=== PATIENT | female | born 1950 | race Asian ===

== ENCOUNTER → 2016-11-08 | Outpatient (CLI) | payer OTHER ==
[~2016-11-08] MED LIST: METO50 PO
== END | disposition home or self-care (01) ==
LOC: RADPV 09:28
PROVIDERS: ATTEND Legal Medicine
DX: M25.821 Other specified joint disorders, right elbow (principal); M25.562 Pain in left knee; M17.0 Bilateral primary osteoarthritis of knee

== ENCOUNTER → 2016-11-16 | Outpatient (CLI) | payer OTHER ==
[2016-11-16 10:32] LABS: BASOPHILS # (AUTO) 0.05 K/uL (0.00-0.20); BASOPHILS % (AUTO) 0.6 % (0.0-2.0); EOSINOPHILS # (AUTO) 0.73 K/uL (0.00-0.70); EOSINOPHILS % (AUTO) 7.45 % (1.0-6.0); HEMATOCRIT 32.7 % (36-46); HEMOGLOBIN 10.7 g/dL (12.0-16.0); LYMPHOCYTES # (AUTO) 2.3 K/uL (1.0-4.8); LYMPHOCYTES % (AUTO) 23.4 % (22.0-44.0); MEAN CORPUSCULAR HGB CONC 32.6 G/dL (31.0-37.0); MEAN CORPUSCULAR VOLUME 92 fL (80-100); MONOCYTES # (AUTO) 0.6 K/uL (0.1-1.0); MONOCYTES % (AUTO) 6.3 % (2.0-9.0); NEUTROPHILS # (AUTO) 6.1 K/uL (1.8-7.7); NEUTROPHILS % (AUTO) 62.3 % (40.0-70.0); PLATELET COUNT (AUTO) 310 K/uL (150-450); RED BLOOD CELL COUNT(AUTO) 3.55 MIL/uL (4.00-5.20); RED CELL DISTRIBUTION WIDTH 14.3 % (11.5-14.5); WHITE BLOOD COUNT (AUTO) 9.7 K/uL (4.5-11.0)
[2016-11-16 10:53] LABS: CHOL/HDL RATIO 2.9 (3.9-5.7)
[2016-11-20 06:23] LABS: ALBUMIN (IFE & ELECTROPHOR) 3.5 g/dL (2.9-4.4); ALBUMIN/GLOBULIN RATIO (IFE) 1.1 (0.7-1.7); ALPHA-2 (IFE & PEP) 0.8 g/dL (0.4-1.0); IGG (IMMUNOFIXATION) 1195 mg/dL (700-1600); M-SPIKE (IEP) Not Observed g/dL (Not Observed); TOTAL PROTEIN 6.7 g/dL (6.0-8.5)
[2016-11-20 11:37] LABS: ALPHA-1 URINE (ELP) 3.8 %; ALPHA-2 URINE(ELP) 17.8 %; BETA URINE(ELP) 30.5 %; GAMMA URINE(ELP) 12.9 %; TOTAL PROTEIN URINE 26.5 mg/dL (Not Estab.)
== END | disposition home or self-care (01) ==
LOC: LABPV 07:57
PROVIDERS: ATTEND Internal Medicine Rheumatology
DX: C90.00 Multiple myeloma not having achieved remission (principal); M06.9 Rheumatoid arthritis, unspecified; Z78.0 Asymptomatic menopausal state; M19.012 Primary osteoarthritis, left shoulder; M19.011 Primary osteoarthritis, right shoulder; M47.892 Other spondylosis, cervical region; M50.321 Other cervical disc degeneration at C4-C5 level; M50.322 Other cervical disc degeneration at C5-C6 level; M50.323 Other cervical disc degeneration at C6-C7 level
CPT/HCPCS: 72040; 82784; 84155; 84156; 84165; 84166; 86334

== ENCOUNTER → 2016-12-18 | Outpatient (CLI) | payer OTHER | END | disposition home or self-care (01) | LOC: RADPV 13:09 | PROVIDERS: ATTEND Legal Medicine | DX: S82.61XK Displaced fracture of lateral malleolus of right fibula, subsequent encounter for closed fracture with nonunion (principal); S82.51XK Displaced fracture of medial malleolus of right tibia, subsequent encounter for closed fracture with nonunion; X58.XXXD Exposure to other specified factors, subsequent encounter; M76.61 Achilles tendinitis, right leg; M79.89 Other specified soft tissue disorders ==

== ENCOUNTER → 2017-01-22 | Outpatient (CLI) | payer OTHER ==
[2017-01-22 11:20] LABS: BASOPHILS % (AUTO) 0.4 % (0.0-2.0); EOSINOPHILS % (AUTO) 4.5 % (1.0-6.0); HEMATOCRIT 33.3 % (36-46); HEMOGLOBIN 10.5 g/dL (12.0-16.0); LYMPHOCYTES # (AUTO) 1.3 K/uL (1.0-4.8); MEAN CORPUSCULAR HEMOGLOBIN 29.2 pg (26.0-34.0); MEAN CORPUSCULAR HGB CONC 31.6 G/dL (31.0-37.0); MEAN CORPUSCULAR VOLUME 92 fL (80-100); MONOCYTES # (AUTO) 0.5 K/uL (0.1-1.0); MONOCYTES % (AUTO) 3.6 % (2.0-9.0); NEUTROPHILS # (AUTO) 10.3 K/uL (1.8-7.7); NEUTROPHILS % (AUTO) 81.5 % (40.0-70.0); PLATELET COUNT (AUTO) 329 K/uL (150-450); RED CELL DISTRIBUTION WIDTH 16.3 % (11.5-14.5); WHITE BLOOD COUNT (AUTO) 12.7 K/uL (4.5-11.0)
[2017-01-22 11:58] LABS: ALBUMIN 3.5 g/dL (3.4-5.0); BILIRUBIN,TOTAL 0.5 mg/dL (0.1-1.0); CALCIUM, TOTAL 9.4 mg/dL (8.8-10.5); CHOL/HDL RATIO 3.5 (3.9-5.7); CREATININE 1.69 mg/dL (0.60-1.30); POTASSIUM 4.5 mmol/L (3.5-5.1); TOTAL PROTEIN, SERUM 7.8 g/dL (6.4-8.2)
[2017-01-22 11:59] LABS: THYROID STIMULATING HORMONE 1.67 uIU/mL (0.36-3.74)
[2017-01-22 12:52] LABS: ERYTHROCYTE SEDIMENTATION RATE 58 MM/HR (0-20)
== END | disposition home or self-care (01) ==
LOC: LABPV 08:30
PROVIDERS: ATTEND Legal Medicine
DX: I10 Essential (primary) hypertension (principal); R10.9 Unspecified abdominal pain
CPT/HCPCS: 82306; 84443; 85651

== ENCOUNTER → 2017-04-16 | Outpatient (CLI) | payer OTHER ==
[2017-04-16 12:57] LABS: BASOPHILS % (AUTO) 0.9 % (0.0-2.0); EOSINOPHILS % (AUTO) 6.4 % (1.0-6.0); HEMATOCRIT 31.7 % (36-46); HEMOGLOBIN 10.6 g/dL (12.0-16.0); LYMPHOCYTES # (AUTO) 2.3 K/uL (1.0-4.8); LYMPHOCYTES % (AUTO) 25.4 % (22.0-44.0); MEAN CORPUSCULAR HEMOGLOBIN 30.3 pg (26.0-34.0); MEAN CORPUSCULAR HGB CONC 33.3 G/dL (31.0-37.0); MEAN CORPUSCULAR VOLUME 91 fL (80-100); MONOCYTES # (AUTO) 0.7 K/uL (0.1-1.0); MONOCYTES % (AUTO) 7.4 % (2.0-9.0); NEUTROPHILS # (AUTO) 5.4 K/uL (1.8-7.7); NEUTROPHILS % (AUTO) 59.9 % (40.0-70.0); PLATELET COUNT (AUTO) 330 K/uL (150-450); RED BLOOD CELL COUNT(AUTO) 3.48 MIL/uL (4.00-5.20); RED CELL DISTRIBUTION WIDTH 15.8 % (11.5-14.5); WHITE BLOOD COUNT (AUTO) 9.1 K/uL (4.5-11.0)
[2017-04-16 13:32] LABS: ALBUMIN 3.5 g/dL (3.4-5.0); BILIRUBIN,TOTAL 0.5 mg/dL (0.1-1.0); CALCIUM, TOTAL 9.5 mg/dL (8.8-10.5); CREATININE 1.7 mg/dL (0.60-1.30); POTASSIUM 4.1 mmol/L (3.5-5.1); THYROID STIMULATING HORMONE 2.23 uIU/mL (0.36-3.74); TOTAL PROTEIN, SERUM 7.6 g/dL (6.4-8.2); URIC ACID 10.5 mg/dL (2.6-7.2)
[2017-04-16 13:37] LABS: HEMOGLOBIN A1C 6.2 % (4.5-6.2)
[2017-04-16 15:17] LABS: ERYTHROCYTE SEDIMENTATION RATE 70 MM/HR (0-20)
== END | disposition home or self-care (01) ==
LOC: LABPV 11:00
PROVIDERS: ATTEND Legal Medicine
DX: I10 Essential (primary) hypertension (principal); M10.00 Idiopathic gout, unspecified site
CPT/HCPCS: 82306; 82607; 82746; 83036; 84443; 84550; 85651; 86038; 86430

== ENCOUNTER → 2017-05-15 | Outpatient (CLI) | payer OTHER ==
[~2017-05-15] MED LIST changes: +AMLO-512 PO; +ASPI-556 PO; +HYDR25TA PO; +PANT40TA25 PO
[2017-05-15 10:20] LABS: ALBUMIN 3.3 g/dL (3.4-5.0); BILIRUBIN,TOTAL 0.3 mg/dL (0.1-1.0); CALCIUM, TOTAL 9.3 mg/dL (8.8-10.5); CREATININE 2.16 mg/dL (0.60-1.30); POTASSIUM 3.9 mmol/L (3.5-5.1); TOTAL PROTEIN, SERUM 7.8 g/dL (6.4-8.2)
[2017-05-15 10:28] LABS: EOSINOPHILS % (AUTO) 6.4 % (1.0-6.0); HEMATOCRIT 31.5 % (36-46); HEMOGLOBIN 10.4 g/dL (12.0-16.0); LYMPHOCYTES # (AUTO) 1.9 K/uL (1.0-4.8); LYMPHOCYTES % (AUTO) 23.2 % (22.0-44.0); MEAN CORPUSCULAR HEMOGLOBIN 29.5 pg (26.0-34.0); MEAN CORPUSCULAR VOLUME 90 fL (80-100); MONOCYTES # (AUTO) 0.6 K/uL (0.1-1.0); MONOCYTES % (AUTO) 7.2 % (2.0-9.0); NEUTROPHILS % (AUTO) 62.2 % (40.0-70.0); PLATELET COUNT (AUTO) 503 K/uL (150-450); RED BLOOD CELL COUNT(AUTO) 3.51 MIL/uL (4.00-5.20); RED CELL DISTRIBUTION WIDTH 15.8 % (11.5-14.5)
== END | disposition home or self-care (01) ==
LOC: LABPV 08:31
PROVIDERS: ATTEND Legal Medicine
DX: I10 Essential (primary) hypertension (principal); M10.00 Idiopathic gout, unspecified site
CPT/HCPCS: 84550

== ENCOUNTER → 2017-07-03 | Outpatient (CLI) | payer OTHER ==
[2017-07-03 12:28] LABS: BASOPHILS % (AUTO) 0.9 % (0.0-2.0); EOSINOPHILS % (AUTO) 8.7 % (1.0-6.0); HEMATOCRIT 31.5 % (36-46); HEMOGLOBIN 10.4 g/dL (12.0-16.0); LYMPHOCYTES # (AUTO) 1.8 K/uL (1.0-4.8); LYMPHOCYTES % (AUTO) 19.9 % (22.0-44.0); MEAN CORPUSCULAR HGB CONC 33.1 G/dL (31.0-37.0); MEAN CORPUSCULAR VOLUME 91 fL (80-100); MONOCYTES # (AUTO) 0.4 K/uL (0.1-1.0); MONOCYTES % (AUTO) 4.9 % (2.0-9.0); NEUTROPHILS % (AUTO) 65.6 % (40.0-70.0); PLATELET COUNT (AUTO) 408 K/uL (150-450); RBC MORPHOLOGY COMMENT ABNORMAL RBC MORPH; RED BLOOD CELL COUNT(AUTO) 3.46 MIL/uL (4.00-5.20); RED CELL DISTRIBUTION WIDTH 17.4 % (11.5-14.5); WHITE BLOOD COUNT (AUTO) 9.1 K/uL (4.5-11.0)
[2017-07-03 12:43] LABS: CALCIUM, TOTAL 9.1 mg/dL (8.8-10.5); CREATININE 1.88 mg/dL (0.60-1.30); PHOSPHORUS 2.9 mg/dL (2.5-4.9)
[2017-07-03 13:32] LABS: POTASSIUM 4.2 mmol/L (3.5-5.1)
== END | disposition home or self-care (01) ==
LOC: LABPV 07:48
PROVIDERS: ATTEND Internal Medicine Nephrology
DX: I10 Essential (primary) hypertension (principal); K92.2 Gastrointestinal hemorrhage, unspecified; M06.9 Rheumatoid arthritis, unspecified
CPT/HCPCS: 83970; 84100

== ENCOUNTER → 2017-08-01 | Outpatient (CLI) | payer OTHER ==
[2017-08-01 10:05] LABS: BASOPHILS # (AUTO) 0.05 K/uL (0.00-0.20); BASOPHILS % (AUTO) 0.7 % (0.0-2.0); EOSINOPHILS # (AUTO) 0.46 K/uL (0.00-0.70); EOSINOPHILS % (AUTO) 7.12 % (1.0-6.0); HEMATOCRIT 31.6 % (36-46); LYMPHOCYTES # (AUTO) 1.7 K/uL (1.0-4.8); LYMPHOCYTES % (AUTO) 26.3 % (22.0-44.0); MEAN CORPUSCULAR HEMOGLOBIN 28.7 pg (26.0-34.0); MEAN CORPUSCULAR HGB CONC 31.6 G/dL (31.0-37.0); MEAN CORPUSCULAR VOLUME 91 fL (80-100); MONOCYTES # (AUTO) 0.4 K/uL (0.1-1.0); MONOCYTES % (AUTO) 6.3 % (2.0-9.0); NEUTROPHILS # (AUTO) 3.9 K/uL (1.8-7.7); NEUTROPHILS % (AUTO) 59.6 % (40.0-70.0); PLATELET COUNT (AUTO) 337 K/uL (150-450); RED BLOOD CELL COUNT(AUTO) 3.48 MIL/uL (4.00-5.20); RED CELL DISTRIBUTION WIDTH 17.9 % (11.5-14.5); WHITE BLOOD COUNT (AUTO) 6.5 K/uL (4.5-11.0)
[2017-08-01 10:18] LABS: ALBUMIN 3.4 g/dL (3.4-5.0); BILIRUBIN,TOTAL 0.3 mg/dL (0.1-1.0); CALCIUM, TOTAL 8.9 mg/dL (8.8-10.5); CREATININE 1.45 mg/dL (0.60-1.30); TOTAL PROTEIN, SERUM 7.3 g/dL (6.4-8.2); URIC ACID 9.4 mg/dL (2.6-7.2)
[2017-08-01 11:42] LABS: RBC MORPHOLOGY COMMENT ABNORMAL RBC MORPH
== END | disposition home or self-care (01) ==
LOC: LABPV 07:50
PROVIDERS: ATTEND Internal Medicine Rheumatology
DX: M79.7 Fibromyalgia (principal); E55.9 Vitamin D deficiency, unspecified
CPT/HCPCS: 82306; 82607; 82746; 83540; 83550; 84550; 86200; 86430

== ENCOUNTER → 2017-11-15 | Outpatient (CLI) | payer OTHER | END | disposition home or self-care (01) | LOC: RADPV 08:51 | PROVIDERS: ATTEND Legal Medicine | DX: M16.0 Bilateral primary osteoarthritis of hip (principal) | CPT/HCPCS: 73521 ==

== ENCOUNTER → 2017-12-21 | Outpatient (CLI) | payer OTHER ==
[2017-12-21 08:51] LABS: HEMATOCRIT 36.6 % (36-46); HEMOGLOBIN 12.1 g/dL (12.0-16.0)
[2017-12-21 09:07] LABS: APPEARANCE,URINE CLEAR (CLEAR); BILIRUBIN,URINE NEGATIVE (NEGATIVE); GLUCOSE, URINE (UA) NEGATIVE (NEGATIVE); KETONES,URINE NEGATIVE (NEGATIVE); LEUKOCYTE ESTERASE ,URINE NEGATIVE (NEGATIVE); NITRATE,URINE NEGATIVE (NEGATIVE); OCCULT BLOOD,URINE NEGATIVE (NEGATIVE); PH,URINE 5.5 (5.0-8.0); PROTEIN,URINE NEGATIVE (NEGATIVE); UROBILINOGEN,URINE 0.2 mg/dL (<=1.0)
[2017-12-21 09:18] LABS: CREATININE,URINE 44.5 mg/dL (30.0-125.0)
[2017-12-21 09:28] LABS: ALBUMIN 3.5 g/dL (3.4-5.0); BILIRUBIN,TOTAL 0.6 mg/dL (0.1-1.0); CALCIUM, TOTAL 9.3 mg/dL (8.8-10.5); CREATININE 1.6 mg/dL (0.60-1.30); TOTAL PROTEIN, SERUM 7.6 g/dL (6.4-8.2)
[2017-12-21 09:30] LABS: CREATININE,SERUM FOR CRCL 1.6 mg/dL (0.60-1.30)
== END | disposition home or self-care (01) ==
LOC: LABMN 08:35
PROVIDERS: ATTEND Internal Medicine Nephrology
DX: N18.9 Chronic kidney disease, unspecified (principal); D63.1 Anemia in chronic kidney disease
CPT/HCPCS: 81050; 82575; 84156; 84300; 85014; 85018

== ENCOUNTER → 2018-02-14 | Outpatient (CLI) | payer OTHER | END | disposition home or self-care (01) | LOC: RADPV 09:37 | PROVIDERS: ATTEND Legal Medicine | DX: M19.032 Primary osteoarthritis, left wrist (principal); M81.0 Age-related osteoporosis without current pathological fracture ==

== ENCOUNTER → 2018-02-26 | Outpatient (CLI) | payer OTHER | END | disposition home or self-care (01) | LOC: RADPV 10:32 | PROVIDERS: ATTEND Legal Medicine | DX: M79.604 Pain in right leg (principal); M79.605 Pain in left leg; R60.0 Localized edema | CPT/HCPCS: 93970 ==

== ENCOUNTER 2018-03-26 11:30 | Day surgery (SDC) | payer OTHER ==
[~2018-03-26] VITALS: Ht 149.9 cm; Wt 59.1 kg
[~2018-03-26 11:30] MED LIST changes: +SODIUM CHLORIDE 0.9% 1,000 ML IV ONE
[2018-03-26] MEDS ORDERED: LIDOCAINE HCL/PF 2% 5 ML VIAL IM ONE (11:31)
[2018-03-26] MEDS ORDERED: PROPOFOL 1% 20 ML VIAL IVP ONE (11:31)
[2018-03-26] MEDS ORDERED: SODIUM CHLORIDE 0.9% 1,000 ML IV ONE (11:50)
[2018-03-26] MEDS ORDERED: HYDR25TA84 PO (12:08)
== END 2018-03-26 15:35 | disposition home or self-care (01) ==
LOC: SURGERY 11:30
PROVIDERS: ATTEND Internal Medicine Gastroenterology
DX: K29.50 Unspecified chronic gastritis without bleeding (principal); I10 Essential (primary) hypertension; E04.2 Nontoxic multinodular goiter; M81.0 Age-related osteoporosis without current pathological fracture; M19.032 Primary osteoarthritis, left wrist; Z88.0 Allergy status to penicillin; Z98.51 Tubal ligation status; Z87.01 Personal history of pneumonia (recurrent); Z79.82 Long term (current) use of aspirin; Z88.6 Allergy status to analgesic agent; Z88.8 Allergy status to other drugs, medicaments and biological substances; Z79.899 Other long term (current) drug therapy
CPT/HCPCS: 43239; 88305; 88312; 93005; C1769; J2704; J3490; J7030

== ENCOUNTER 2018-04-17 17:29 | Inpatient (IN) | payer OTHER, MEDICARE ==
[~2018-04-17] VITALS: Ht 149.9 cm; Wt 63.5 kg
[~2018-04-17 17:29] MED LIST changes: -HYDR25TA PO; -METO50 PO
[2018-04-17] MEDS ORDERED: HYDR25TA PO (17:30)
[2018-04-17] MEDS ORDERED: FentaNYL CITRATE-PF 100 MCG/2 ML VIAL IVP ONE (19:30)
[2018-04-17] MEDS ORDERED: ONDANSETRON HCL 4 MG/2 ML VIAL IVP ONE (19:30)
[2018-04-17] MEDS ORDERED: SODIUM CHLORIDE 0.9% 2,000 ML IV ONE (19:30)
[2018-04-17 19:45] LABS: BASOPHILS % (AUTO) 0.5 % (0.0-2.0); EOSINOPHILS % (AUTO) 0.2 % (1.0-6.0); HEMATOCRIT 32.7 % (36-46); HEMOGLOBIN 10.8 g/dL (12.0-16.0); LYMPHOCYTES # (AUTO) 1.3 K/uL (1.0-4.8); LYMPHOCYTES % (AUTO) 8.8 % (22.0-44.0); MEAN CORPUSCULAR VOLUME 91 fL (80-100); MONOCYTES # (AUTO) 1.2 K/uL (0.1-1.0); MONOCYTES % (AUTO) 7.8 % (2.0-9.0); NEUTROPHILS # (AUTO) 12.3 K/uL (1.8-7.7); NEUTROPHILS % (AUTO) 82.7 % (40.0-70.0); PLATELET COUNT (AUTO) 333 K/uL (150-450); RED BLOOD CELL COUNT(AUTO) 3.59 MIL/uL (4.00-5.20); RED CELL DISTRIBUTION WIDTH 14.9 % (11.5-14.5)
[2018-04-17 19:59] LABS: CALCIUM, TOTAL 9.4 mg/dL (8.8-10.5); CREATININE 1.58 mg/dL (0.60-1.30); POTASSIUM 3.4 mmol/L (3.5-5.1)
[2018-04-17 20:05] LABS: ALBUMIN 3.3 g/dL (3.4-5.0); BILIRUBIN,TOTAL 1.6 mg/dL (0.1-1.0); TOTAL PROTEIN, SERUM 7.8 g/dL (6.4-8.2); URIC ACID 9.3 mg/dL (2.6-7.2)
[2018-04-17 20:07] LABS: LACTIC ACID 1.5 mmol/L (0.4-2.0)
[2018-04-17] MEDS ORDERED: CefTRIAXone SODIUM 1 GM in DEXTROSE 5%-WATER 10 ML IV ONE (20:30)
[2018-04-17] MEDS ORDERED: ONDANSETRON HCL 4 MG/2 ML VIAL IVP PRN ×2 (20:45→22:15)
[2018-04-17] MEDS ORDERED: 0.9% SODIUM CHLORIDE 10 ML SYRINGE IVP PRN (20:45)
[2018-04-17] MEDS ORDERED: COLCHICINE 0.6 MG TABLET PO ONE ×2 (20:45→21:00)
[2018-04-17] MEDS ORDERED: ACETAMINOPHEN 325 MG TABLET PO PRN (20:45)
[2018-04-17] MEDS: GENTAMICIN SULFATE 160 MG in DEXTROSE 5%-WATER 100 ML IV ONE ×2 (21:37→22:35)
[2018-04-17] MEDS ORDERED: MAGNESIUM HYDROXIDE SUSPENSION 30 ML UDCUP PO PRN (22:15)
[2018-04-17] MEDS ORDERED: ALBUTEROL SULFATE 2.5 MG/0.5 ML NEB SOLUTION NEB PRN (22:15)
[2018-04-17] MEDS ORDERED: IPRATROPIUM BROMIDE 0.5 MG/2.5 ML NEB SOLUTION NEB PRN (22:15)
[2018-04-17] MEDS ORDERED: BISACODYL 10 MG RECTAL RECTAL SUPPOSITORY PR PRN (22:15)
[2018-04-17] MEDS ORDERED: MORPHINE SULFATE 2 MG/ML SYRINGE IVP PRN (22:15)
[2018-04-17] MEDS ORDERED: POTASSIUM CHLORIDE 20 MEQ ER TABLET PO ONE (22:15)
[2018-04-17] MEDS ORDERED: ZOLPIDEM TARTRATE 5 MG TABLET PO PRN (22:15)
[2018-04-17] MEDS: ACETAMINOPHEN 325 MG TABLET PO PRN (22:34)
[2018-04-17 22:43] VITALS: BP 192/96
[2018-04-17] MEDS: CloNIDine HCL 0.1 MG TABLET PO PRN (22:43)
[2018-04-18 00:16] VITALS: BP 161/89
[2018-04-18 04:00] VITALS: BP 132/72
[2018-04-18 06:11] LABS: BASOPHILS % (AUTO) 0.4 % (0.0-2.0); EOSINOPHILS % (AUTO) 1.2 % (1.0-6.0); HEMATOCRIT 28.5 % (36-46); HEMOGLOBIN 9.6 g/dL (12.0-16.0); LYMPHOCYTES # (AUTO) 1.8 K/uL (1.0-4.8); LYMPHOCYTES % (AUTO) 15.6 % (22.0-44.0); MEAN CORPUSCULAR HEMOGLOBIN 30.7 pg (26.0-34.0); MEAN CORPUSCULAR HGB CONC 33.6 G/dL (31.0-37.0); MEAN CORPUSCULAR VOLUME 91 fL (80-100); MONOCYTES # (AUTO) 1.5 K/uL (0.1-1.0); MONOCYTES % (AUTO) 12.6 % (2.0-9.0); NEUTROPHILS # (AUTO) 8.2 K/uL (1.8-7.7); NEUTROPHILS % (AUTO) 70.2 % (40.0-70.0); PLATELET COUNT (AUTO) 286 K/uL (150-450); RED BLOOD CELL COUNT(AUTO) 3.12 MIL/uL (4.00-5.20); RED CELL DISTRIBUTION WIDTH 14.5 % (11.5-14.5)
[2018-04-18 06:32] LABS: HEMOGLOBIN A1C 5.4 % (4.5-6.2)
[2018-04-18 06:48] LABS: C-REACTIVE PROTEIN QUANT 9.78 mg/dL (0.00-0.30); CALCIUM, TOTAL 8.4 mg/dL (8.8-10.5); CHOL/HDL RATIO 2.4 (3.9-5.7); CREATININE 1.46 mg/dL (0.60-1.30); FREE T4 (FREE THYROXINE) 1.17 ng/dL (0.76-1.46); POTASSIUM 3.6 mmol/L (3.5-5.1); THYROID STIMULATING HORMONE 0.81 uIU/mL (0.36-3.74)
[2018-04-18 07:00] LABS: URIC ACID 8.2 mg/dL (2.6-7.2)
[2018-04-18] MEDS: HYDROCODONE/ACETAMINOPHEN 5-325 MG TABLET PO PRN (07:00)
[2018-04-18 07:55] VITALS: BP 151/76
[2018-04-18] MEDS: HEPARIN SODIUM,PORCINE 5,000 UNITS/ML VIAL SQ SCH ×2 (07:56→20:53)
[2018-04-18] MEDS: PANTOPRAZOLE SODIUM 40 MG/VIAL IVP SCH (07:56)
[2018-04-18 08:28] LABS: ERYTHROCYTE SEDIMENTATION RATE 93 MM/HR (0-20)
[2018-04-18] MEDS ORDERED: METOPROLOL TARTRATE 25 MG TABLET PO SCH (09:00)
[2018-04-18] MEDS ORDERED: COLCHICINE 0.6 MG TABLET PO ONE (09:00)
[2018-04-18 09:13] LABS: FOLATE SERUM 10.9 ng/mL (5.4-)
[2018-04-18 10:31] LABS: APPEARANCE,URINE CLEAR (CLEAR); BILIRUBIN,URINE NEGATIVE (NEGATIVE); GLUCOSE, URINE (UA) NEGATIVE (NEGATIVE); KETONES,URINE NEGATIVE (NEGATIVE); LEUKOCYTE ESTERASE ,URINE NEGATIVE (NEGATIVE); NITRATE,URINE NEGATIVE (NEGATIVE); OCCULT BLOOD,URINE NEGATIVE (NEGATIVE); PROTEIN,URINE TRACE (NEGATIVE)
[2018-04-18 10:45] LABS: RBC,URINE 0-2 /HPF (0-2); WBC,URINE 0-2 /HPF (0-5)
[2018-04-18 10:46] LABS: BACTERIA,URINE Rare /HPF (None Seen); SQUAMOUS EPITHELIAL CELL,UR Rare /LPF (None Seen)
[2018-04-18 11:28] VITALS: BP 136/77
[2018-04-18 15:42] VITALS: BP 125/71
[2018-04-18 19:35] VITALS: BP 144/78
[2018-04-18] MEDS: METOPROLOL TARTRATE 50 MG TABLET PO SCH (20:53)
[2018-04-18] MEDS: CeFAZolin SODIUM 1 GM in DEXTROSE 5%-WATER 10 ML IV SCH (20:53)
[2018-04-18] MEDS ORDERED: CefTRIAXone SODIUM 1 GM in DEXTROSE 5%-WATER 10 ML IV SCH (21:00)
[2018-04-18] MEDS: ACETAMINOPHEN 325 MG TABLET PO PRN (21:04)
[2018-04-19] VITALS (7 sets, daily range): BP systolic 137–192; BP diastolic 71–96
[2018-04-19 06:33] LABS: BASOPHILS % (AUTO) 0.7 % (0.0-2.0); EOSINOPHILS % (AUTO) 5.1 % (1.0-6.0); HEMATOCRIT 28.7 % (36-46); HEMOGLOBIN 9.6 g/dL (12.0-16.0); LYMPHOCYTES # (AUTO) 2.1 K/uL (1.0-4.8); LYMPHOCYTES % (AUTO) 24.6 % (22.0-44.0); MEAN CORPUSCULAR HEMOGLOBIN 30.4 pg (26.0-34.0); MEAN CORPUSCULAR HGB CONC 33.3 G/dL (31.0-37.0); MEAN CORPUSCULAR VOLUME 91 fL (80-100); MONOCYTES # (AUTO) 0.9 K/uL (0.1-1.0); NEUTROPHILS % (AUTO) 58.6 % (40.0-70.0); PLATELET COUNT (AUTO) 298 K/uL (150-450); RED BLOOD CELL COUNT(AUTO) 3.15 MIL/uL (4.00-5.20)
[2018-04-19 06:40] LABS: INR 0.9 (0.9-1.1); PROTHROMBIN TIME 9.9 SEC (9.4-11.6)
[2018-04-19 07:02] LABS: CALCIUM, TOTAL 8.8 mg/dL (8.8-10.5); CREATININE 1.42 mg/dL (0.60-1.30); PHOSPHORUS 2.9 mg/dL (2.5-4.9); POTASSIUM 3.6 mmol/L (3.5-5.1)
[2018-04-19] MEDS: PANTOPRAZOLE SODIUM 40 MG/VIAL IVP SCH (09:09)
[2018-04-19] MEDS: CeFAZolin SODIUM 1 GM in DEXTROSE 5%-WATER 10 ML IV SCH ×2 (09:09→20:15)
[2018-04-19] MEDS: METOPROLOL TARTRATE 50 MG TABLET PO SCH ×2 (09:09→20:15)
[2018-04-19] MEDS: HEPARIN SODIUM,PORCINE 5,000 UNITS/ML VIAL SQ SCH ×2 (09:10→20:15)
[2018-04-19 10:27] LABS: URIC ACID 8.7 mg/dL (2.6-7.2)
[2018-04-19] MEDS: CloNIDine HCL 0.1 MG TABLET PO PRN (20:10)
[2018-04-19] MEDS: HYDROCODONE/ACETAMINOPHEN 5-325 MG TABLET PO PRN (23:35)
[2018-04-20] VITALS (7 sets, daily range): BP systolic 140–175; BP diastolic 71–96
[2018-04-20] MEDS: HEPARIN SODIUM,PORCINE 5,000 UNITS/ML VIAL SQ SCH ×3 (09:10→21:04)
[2018-04-20] MEDS: PANTOPRAZOLE SODIUM 40 MG/VIAL IVP SCH (09:10)
[2018-04-20] MEDS: METOPROLOL TARTRATE 50 MG TABLET PO SCH ×2 (09:10→21:03)
[2018-04-20] MEDS: CeFAZolin SODIUM 1 GM in DEXTROSE 5%-WATER 10 ML IV SCH ×2 (09:11→21:04)
[2018-04-20 09:14] LABS: BASOPHILS % (AUTO) 1.1 % (0.0-2.0); HEMATOCRIT 31.4 % (36-46); HEMOGLOBIN 10.5 g/dL (12.0-16.0); LYMPHOCYTES # (AUTO) 1.4 K/uL (1.0-4.8); LYMPHOCYTES % (AUTO) 18.9 % (22.0-44.0); MEAN CORPUSCULAR HEMOGLOBIN 30.4 pg (26.0-34.0); MEAN CORPUSCULAR HGB CONC 33.4 G/dL (31.0-37.0); MEAN CORPUSCULAR VOLUME 91 fL (80-100); MONOCYTES # (AUTO) 0.7 K/uL (0.1-1.0); NEUTROPHILS # (AUTO) 4.9 K/uL (1.8-7.7); PLATELET COUNT (AUTO) 333 K/uL (150-450); RED BLOOD CELL COUNT(AUTO) 3.45 MIL/uL (4.00-5.20); RED CELL DISTRIBUTION WIDTH 14.7 % (11.5-14.5)
[2018-04-20 09:25] LABS: CALCIUM, TOTAL 9.3 mg/dL (8.8-10.5); CREATININE 1.51 mg/dL (0.60-1.30); POTASSIUM 3.6 mmol/L (3.5-5.1)
[2018-04-20] MEDS: AmLODIPine BESYLATE 5 MG TABLET PO SCH (12:14)
[2018-04-20] MEDS: HydrALAZINE HCL 10 MG TABLET PO SCH ×2 (12:14→21:03)
[2018-04-20] MEDS: COLCHICINE 0.6 MG TABLET PO SCH ×2 (12:14→21:03)
[2018-04-21 03:32] VITALS: BP 151/84
[2018-04-21 08:00] VITALS: BP 155/89
[2018-04-21] MEDS: HEPARIN SODIUM,PORCINE 5,000 UNITS/ML VIAL SQ SCH ×4 (09:00→20:24)
[2018-04-21] MEDS: COLCHICINE 0.6 MG TABLET PO SCH ×3 (09:00→20:17)
[2018-04-21] MEDS: AmLODIPine BESYLATE 5 MG TABLET PO SCH (09:34)
[2018-04-21] MEDS: PANTOPRAZOLE SODIUM 40 MG/VIAL IVP SCH (09:34)
[2018-04-21] MEDS: METOPROLOL TARTRATE 50 MG TABLET PO SCH ×2 (09:35→20:18)
[2018-04-21] MEDS: HydrALAZINE HCL 10 MG TABLET PO SCH ×2 (09:35→20:18)
[2018-04-21] MEDS: CeFAZolin SODIUM 1 GM in DEXTROSE 5%-WATER 10 ML IV SCH ×2 (09:38→20:18)
[2018-04-21 11:13] VITALS: BP 187/91
[2018-04-21 16:00] VITALS: BP 157/83
[2018-04-21 19:29] VITALS: BP 143/86
[2018-04-21 23:13] VITALS: BP 146/84
[2018-04-22 04:16] VITALS: BP 150/94
[2018-04-22 06:35] LABS: BASOPHILS % (AUTO) 1.1 % (0.0-2.0); EOSINOPHILS % (AUTO) 5.1 % (1.0-6.0); HEMOGLOBIN 10.4 g/dL (12.0-16.0); LYMPHOCYTES # (AUTO) 1.7 K/uL (1.0-4.8); MEAN CORPUSCULAR HEMOGLOBIN 30.8 pg (26.0-34.0); MEAN CORPUSCULAR HGB CONC 33.7 G/dL (31.0-37.0); MEAN CORPUSCULAR VOLUME 91 fL (80-100); MONOCYTES # (AUTO) 0.8 K/uL (0.1-1.0); MONOCYTES % (AUTO) 9.3 % (2.0-9.0); NEUTROPHILS # (AUTO) 5.6 K/uL (1.8-7.7); NEUTROPHILS % (AUTO) 64.5 % (40.0-70.0); PLATELET COUNT (AUTO) 358 K/uL (150-450); RED CELL DISTRIBUTION WIDTH 14.6 % (11.5-14.5)
[2018-04-22 06:44] LABS: CALCIUM, TOTAL 9.5 mg/dL (8.8-10.5); CREATININE 1.59 mg/dL (0.60-1.30); MAGNESIUM 2.1 mg/dL (1.80-2.40); POTASSIUM 3.8 mmol/L (3.5-5.1)
[2018-04-22 07:40] VITALS: BP 156/84
[2018-04-22] MEDS: PANTOPRAZOLE SODIUM 40 MG/VIAL IVP SCH ×2 (08:01→08:13)
[2018-04-22] MEDS: CeFAZolin SODIUM 1 GM in DEXTROSE 5%-WATER 10 ML IV SCH ×2 (08:01→20:42)
[2018-04-22] MEDS: METOPROLOL TARTRATE 50 MG TABLET PO SCH ×2 (08:02→20:42)
[2018-04-22] MEDS: HEPARIN SODIUM,PORCINE 5,000 UNITS/ML VIAL SQ SCH ×4 (08:02→21:00)
[2018-04-22] MEDS: HydrALAZINE HCL 10 MG TABLET PO SCH ×2 (08:02→20:42)
[2018-04-22] MEDS: AmLODIPine BESYLATE 5 MG TABLET PO SCH (08:02)
[2018-04-22] MEDS: COLCHICINE 0.6 MG TABLET PO SCH ×4 (08:02→21:00)
[2018-04-22 11:27] VITALS: BP 144/95
[2018-04-22 16:44] VITALS: BP 151/78
[2018-04-22 19:25] VITALS: BP 179/89
[2018-04-22 23:30] VITALS: BP 158/98
[2018-04-23 04:14] VITALS: BP 158/97
[2018-04-23 07:45] VITALS: BP 176/90
[2018-04-23] MEDS: COLCHICINE 0.6 MG TABLET PO SCH ×2 (09:00→21:00)
[2018-04-23] MEDS: HEPARIN SODIUM,PORCINE 5,000 UNITS/ML VIAL SQ SCH ×2 (09:00→21:00)
[2018-04-23] MEDS: CeFAZolin SODIUM 1 GM in DEXTROSE 5%-WATER 10 ML IV SCH ×2 (09:05→20:38)
[2018-04-23] MEDS: HydrALAZINE HCL 10 MG TABLET PO SCH ×2 (09:06→20:38)
[2018-04-23] MEDS: PANTOPRAZOLE SODIUM 40 MG/VIAL IVP SCH (09:06)
[2018-04-23] MEDS: METOPROLOL TARTRATE 50 MG TABLET PO SCH ×2 (09:06→20:38)
[2018-04-23] MEDS: AmLODIPine BESYLATE 10 MG TABLET PO SCH (09:09)
[2018-04-23 11:31] VITALS: BP 145/76
[2018-04-23 15:15] VITALS: BP 151/84
[2018-04-23 20:09] VITALS: BP 153/78
[2018-04-23 23:30] VITALS: BP 162/78
[2018-04-24] VITALS: BP 141/71
[2018-04-24 04:00] VITALS: BP 145/78
[2018-04-24 07:25] VITALS: BP 142/77
[2018-04-24] MEDS: HEPARIN SODIUM,PORCINE 5,000 UNITS/ML VIAL SQ SCH (08:20)
[2018-04-24] MEDS: HydrALAZINE HCL 10 MG TABLET PO SCH (08:21)
[2018-04-24] MEDS: AmLODIPine BESYLATE 10 MG TABLET PO SCH (08:21)
[2018-04-24] MEDS: METOPROLOL TARTRATE 50 MG TABLET PO SCH (08:21)
[2018-04-24] MEDS: COLCHICINE 0.6 MG TABLET PO SCH (08:21)
[2018-04-24] MEDS: CeFAZolin SODIUM 1 GM in DEXTROSE 5%-WATER 10 ML IV SCH (09:00)
[2018-04-24] MEDS: PANTOPRAZOLE SODIUM 40 MG/VIAL IVP SCH (09:00)
[2018-04-24 11:17] VITALS: BP 124/64
[2018-04-24] MEDS ORDERED: METO50 PO (12:58)
[2018-04-24 15:14] VITALS: BP 135/73
== END 2018-04-24 16:30 | disposition home or self-care (01) | DRG 872 ==
LOC: EMS 17:29 → 6N 20:30 → 4E 04-22 08:50
PROVIDERS: ADMIT Internal Medicine Geriatric Medicine; ATTEND Internal Medicine Geriatric Medicine
DX: A41.9 Sepsis, unspecified organism (principal); L03.113 Cellulitis of right upper limb; N17.9 Acute kidney failure, unspecified; D64.9 Anemia, unspecified; E87.6 Hypokalemia; M10.9 Gout, unspecified; I12.9 Hypertensive chronic kidney disease with stage 1 through stage 4 chronic kidney disease, or unspecified chronic kidney disease; N18.3 Chronic kidney disease, stage 3 (moderate); K21.9 Gastro-esophageal reflux disease without esophagitis; M19.90 Unspecified osteoarthritis, unspecified site; Z79.899 Other long term (current) drug therapy; Z87.19 Personal history of other diseases of the digestive system; Z88.6 Allergy status to analgesic agent
CPT/HCPCS: 73218; 82306; 82607; 82746; 83036; 83605; 83735; 84100; 84145; 84439; 84443; 84550; 85651; 86140; 87040; 93306; 96361; 96374; 96375; 97110; 97166; 99291; C9113; J0690; J0696; J1580; J1644; J2270; J2405; J3010; J7030; J7060

== ENCOUNTER → 2018-04-17 | Outpatient (CLI) | payer OTHER ==
[~2018-04-17] MED LIST changes: -AMLO-512 PO; -ASPI-556 PO; +HYDR25TA84 PO; -PANT40TA25 PO; -SODIUM CHLORIDE 0.9% 1,000 ML IV ONE
== END | disposition home or self-care (01) ==
LOC: RADPV 12:48
PROVIDERS: ATTEND Legal Medicine
DX: M85.841 Other specified disorders of bone density and structure, right hand (principal); M19.041 Primary osteoarthritis, right hand; M19.021 Primary osteoarthritis, right elbow; R06.00 Dyspnea, unspecified

== ENCOUNTER → 2018-06-29 | Outpatient (CLI) | payer OTHER, MEDICARE ==
[~2018-06-29] MED LIST changes: +METO50 PO
[2018-07-01 09:26] LABS: CALCIUM, TOTAL 9.2 mg/dL (8.8-10.5); CREATININE 1.9 mg/dL (0.60-1.30); POTASSIUM 4.4 mmol/L (3.5-5.1); URIC ACID 9.7 mg/dL (2.6-7.2)
[2018-07-01 09:27] LABS: CHOL/HDL RATIO 3.7 (3.9-5.7)
== END | disposition home or self-care (01) ==
LOC: LABMN 10:00
PROVIDERS: ATTEND Internal Medicine Nephrology
DX: N18.3 Chronic kidney disease, stage 3 (moderate) (principal)
CPT/HCPCS: 84550

== ENCOUNTER → 2018-09-03 | Outpatient (CLI) | payer OTHER, MEDICARE | END | disposition home or self-care (01) | LOC: RADPV 07:47 | PROVIDERS: ATTEND Legal Medicine | DX: K82.4 Cholesterolosis of gallbladder (principal); N28.1 Cyst of kidney, acquired; M25.861 Other specified joint disorders, right knee; R60.0 Localized edema | CPT/HCPCS: 76700; 93970 ==

== ENCOUNTER → 2018-09-04 | Outpatient (CLI) | payer OTHER, MEDICARE ==
[2018-09-04 09:03] LABS: BASOPHILS % (AUTO) 1.1 % (0.0-2.0); EOSINOPHILS % (AUTO) 9.8 % (1.0-6.0); HEMATOCRIT 33.2 % (36-46); HEMOGLOBIN 11.1 g/dL (12.0-16.0); LYMPHOCYTES # (AUTO) 1.7 K/uL (1.0-4.8); LYMPHOCYTES % (AUTO) 26.1 % (22.0-44.0); MEAN CORPUSCULAR HEMOGLOBIN 31.7 pg (26.0-34.0); MEAN CORPUSCULAR HGB CONC 33.3 G/dL (31.0-37.0); MEAN CORPUSCULAR VOLUME 95 fL (80-100); MONOCYTES # (AUTO) 0.5 K/uL (0.1-1.0); MONOCYTES % (AUTO) 7.7 % (2.0-9.0); NEUTROPHILS # (AUTO) 3.7 K/uL (1.8-7.7); NEUTROPHILS % (AUTO) 55.3 % (40.0-70.0); PLATELET COUNT (AUTO) 344 K/uL (150-450); RED BLOOD CELL COUNT(AUTO) 3.49 MIL/uL (4.00-5.20); RED CELL DISTRIBUTION WIDTH 14.5 % (11.5-14.5)
[2018-09-04 09:40] LABS: ALBUMIN 3.6 g/dL (3.4-5.0); BILIRUBIN,TOTAL 0.5 mg/dL (0.1-1.0); C-REACTIVE PROTEIN QUANT 0.28 mg/dL (0.00-0.30); CHOL/HDL RATIO 2.9 (3.9-5.7); CREATININE 1.73 mg/dL (0.60-1.30); POTASSIUM 4.3 mmol/L (3.5-5.1); THYROID STIMULATING HORMONE 2.4 uIU/mL (0.36-3.74); TOTAL PROTEIN, SERUM 7.4 g/dL (6.4-8.2)
[2018-09-04 10:24] LABS: ERYTHROCYTE SEDIMENTATION RATE 45 MM/HR (0-20)
== END | disposition home or self-care (01) ==
LOC: LABPV 07:48
PROVIDERS: ATTEND Legal Medicine
DX: I34.0 Nonrheumatic mitral (valve) insufficiency (principal); I10 Essential (primary) hypertension; R01.1 Cardiac murmur, unspecified; K57.33 Diverticulitis of large intestine without perforation or abscess with bleeding
CPT/HCPCS: 82306; 84443; 85651; 86140

== ENCOUNTER → 2018-11-04 | Outpatient (CLI) | payer OTHER, MEDICARE ==
[2018-11-04 13:49] LABS: CALCIUM, TOTAL 9.5 mg/dL (8.8-10.5); CREATININE 1.62 mg/dL (0.60-1.30); POTASSIUM 3.9 mmol/L (3.5-5.1)
[2018-11-04 14:00] LABS: HEMATOCRIT 32.1 % (36-46); HEMOGLOBIN 10.7 g/dL (12.0-16.0)
== END | disposition home or self-care (01) ==
LOC: LABPV 11:51
PROVIDERS: ATTEND Internal Medicine Nephrology
DX: I12.9 Hypertensive chronic kidney disease with stage 1 through stage 4 chronic kidney disease, or unspecified chronic kidney disease (principal); N18.3 Chronic kidney disease, stage 3 (moderate); D63.1 Anemia in chronic kidney disease; M19.90 Unspecified osteoarthritis, unspecified site; Z88.8 Allergy status to other drugs, medicaments and biological substances
CPT/HCPCS: 85014; 85018

== ENCOUNTER 2019-03-01 15:12 | Emergency (ER) | payer OTHER, MEDICARE ==
[~2019-03-01] VITALS: Ht 152.4 cm; Wt 56.8 kg
[2019-03-01] MEDS ORDERED: MORPHINE SULFATE 4 MG/ML SYRINGE IM ONE (17:15)
[2019-03-01] MEDS ORDERED: MethylPREDNISolone SOD SUCC 125 MG/2 ML VIAL IM ONE (17:15)
[2019-03-01 18:38] VITALS: BP 168/91
== END 2019-03-01 19:17 | disposition home or self-care (01) ==
LOC: EMS 15:13
DX: M19.90 Unspecified osteoarthritis, unspecified site (principal); I10 Essential (primary) hypertension; Z88.6 Allergy status to analgesic agent
CPT/HCPCS: 96372; 99283; J2270; J2930

== ENCOUNTER 2019-04-22 21:51 | Emergency (ER) | payer OTHER, MEDICARE ==
[~2019-04-22] VITALS: Ht 149.9 cm; Wt 56.8 kg
[2019-04-22] MEDS ORDERED: COLC0.6T76 PO (22:21)
[2019-04-22 22:58] LABS: APPEARANCE,URINE CLEAR (CLEAR); BILIRUBIN,URINE NEGATIVE (NEGATIVE); GLUCOSE, URINE (UA) NEGATIVE (NEGATIVE); KETONES,URINE NEGATIVE (NEGATIVE); LEUKOCYTE ESTERASE ,URINE NEGATIVE (NEGATIVE); NITRATE,URINE NEGATIVE (NEGATIVE); OCCULT BLOOD,URINE SMALL (NEGATIVE); PROTEIN,URINE TRACE (NEGATIVE); UROBILINOGEN,URINE 0.2 mg/dL (<=1.0)
[2019-04-22 23:13] LABS: BACTERIA,URINE Rare /HPF (None Seen); SQUAMOUS EPITHELIAL CELL,UR Few /LPF (None Seen); WBC,URINE 0-2 /HPF (0-5)
[2019-04-22 23:58] LABS: BASOPHILS % (AUTO) 0.7 % (0.0-2.0); EOSINOPHILS % (AUTO) 1.3 % (1.0-6.0); HEMATOCRIT 29.6 % (36-46); HEMOGLOBIN 9.7 g/dL (12.0-16.0); LYMPHOCYTES # (AUTO) 0.9 K/uL (1.0-4.8); LYMPHOCYTES % (AUTO) 10.5 % (22.0-44.0); MEAN CORPUSCULAR HEMOGLOBIN 31.5 pg (26.0-34.0); MEAN CORPUSCULAR HGB CONC 32.8 G/dL (31.0-37.0); MEAN CORPUSCULAR VOLUME 96 fL (80-100); MONOCYTES # (AUTO) 0.6 K/uL (0.1-1.0); MONOCYTES % (AUTO) 6.4 % (2.0-9.0); NEUTROPHILS # (AUTO) 7.2 K/uL (1.8-7.7); NEUTROPHILS % (AUTO) 81.1 % (40.0-70.0); PLATELET COUNT (AUTO) 461 K/uL (150-450); RED BLOOD CELL COUNT(AUTO) 3.09 MIL/uL (4.00-5.20); RED CELL DISTRIBUTION WIDTH 16.2 % (11.5-14.5)
[2019-04-23 00:07] LABS: CALCIUM, TOTAL 9.6 mg/dL (8.8-10.5); CREATININE 1.68 mg/dL (0.60-1.30); POTASSIUM 4.3 mmol/L (3.5-5.1)
[2019-04-23 00:13] LABS: ALBUMIN 3.1 g/dL (3.4-5.0); BILIRUBIN,TOTAL 0.3 mg/dL (0.1-1.0); TOTAL PROTEIN, SERUM 7.3 g/dL (6.4-8.2)
[2019-04-23] MEDS ORDERED: TAMSULOSIN HCL 0.4 MG CAPSULE PO ONE (00:30)
[2019-04-23 01:00] VITALS: BP 166/93
== END 2019-04-23 01:19 | disposition home or self-care (01) ==
LOC: EMS 21:52
DX: R33.9 Retention of urine, unspecified (principal); M10.9 Gout, unspecified; I10 Essential (primary) hypertension
CPT/HCPCS: 51701; 51702; 84550

== ENCOUNTER → 2019-04-28 | Outpatient (CLI) | payer OTHER, MEDICARE ==
[~2019-04-28] MED LIST changes: +COLC0.6T76 PO; -METO50 PO
== END | disposition home or self-care (01) ==
LOC: RADPV 11:17
PROVIDERS: ATTEND Legal Medicine
DX: I82.4Z2 Acute embolism and thrombosis of unspecified deep veins of left distal lower extremity (principal); I82.4Z1 Acute embolism and thrombosis of unspecified deep veins of right distal lower extremity
CPT/HCPCS: 93970

== ENCOUNTER → 2019-04-29 | Outpatient (CLI) | payer OTHER | END | disposition home or self-care (01) | LOC: RADPV 08:35 | PROVIDERS: ATTEND Legal Medicine | DX: K82.4 Cholesterolosis of gallbladder (principal) | CPT/HCPCS: 76700 ==

== ENCOUNTER → 2019-05-04 | Outpatient (CLI) | payer OTHER | END | disposition home or self-care (01) | LOC: RADPV 05-01 13:22 | PROVIDERS: ATTEND Legal Medicine | DX: I82.403 Acute embolism and thrombosis of unspecified deep veins of lower extremity, bilateral (principal); M71.22 Synovial cyst of popliteal space [Baker], left knee; M71.21 Synovial cyst of popliteal space [Baker], right knee | CPT/HCPCS: 93970 ==

== ENCOUNTER → 2019-05-20 | Outpatient (CLI) | payer OTHER ==
[2019-05-20 11:49] LABS: % IRON SATURATION 8.9 % (22-44); EOSINOPHILS % (AUTO) 2.8 % (1.0-6.0); HEMATOCRIT 33.3 % (36-46); HEMOGLOBIN 10.4 g/dL (12.0-16.0); LYMPHOCYTES # (AUTO) 1.9 K/uL (1.0-4.8); LYMPHOCYTES % (AUTO) 21.9 % (22.0-44.0); MEAN CORPUSCULAR HEMOGLOBIN 30.4 pg (26.0-34.0); MEAN CORPUSCULAR HGB CONC 31.3 G/dL (31.0-37.0); MEAN CORPUSCULAR VOLUME 97 fL (80-100); MONOCYTES # (AUTO) 0.7 K/uL (0.1-1.0); MONOCYTES % (AUTO) 7.7 % (2.0-9.0); NEUTROPHILS # (AUTO) 5.8 K/uL (1.8-7.7); NEUTROPHILS % (AUTO) 66.6 % (40.0-70.0); PLATELET COUNT (AUTO) 348 K/uL (150-450); RED BLOOD CELL COUNT(AUTO) 3.43 MIL/uL (4.00-5.20); RED CELL DISTRIBUTION WIDTH 16.3 % (11.5-14.5)
[2019-05-20 12:02] LABS: ALBUMIN 3.6 g/dL (3.4-5.0); BILIRUBIN,TOTAL 0.5 mg/dL (0.1-1.0); C-REACTIVE PROTEIN QUANT 2.4 mg/dL (0.00-0.30); CALCIUM, TOTAL 9.6 mg/dL (8.8-10.5); CHOL/HDL RATIO 3.4 (3.9-5.7); CREATININE 2.62 mg/dL (0.60-1.30); POTASSIUM 4.1 mmol/L (3.5-5.1); TOTAL PROTEIN, SERUM 7.7 g/dL (6.4-8.2)
[2019-05-20 12:30] LABS: URIC ACID 9.8 mg/dL (2.6-7.2)
== END | disposition home or self-care (01) ==
LOC: LABPV 07:21
PROVIDERS: ATTEND Internal Medicine Rheumatology
DX: E55.9 Vitamin D deficiency, unspecified (principal)
CPT/HCPCS: 81374; 82306; 83540; 83550; 84550; 86140; 86200; 86225; 86430

== ENCOUNTER → 2019-05-28 | Outpatient (CLI) | payer OTHER ==
[2019-05-28 14:21] LABS: CALCIUM, TOTAL 9.6 mg/dL (8.8-10.5); CREATININE 1.93 mg/dL (0.60-1.30); POTASSIUM 5.1 mmol/L (3.5-5.1)
[2019-05-28 18:00] LABS: APPEARANCE,URINE CLEAR (CLEAR); BILIRUBIN,URINE NEGATIVE (NEGATIVE); GLUCOSE, URINE (UA) NEGATIVE (NEGATIVE); KETONES,URINE NEGATIVE (NEGATIVE); LEUKOCYTE ESTERASE ,URINE TRACE (NEGATIVE); NITRATE,URINE NEGATIVE (NEGATIVE); OCCULT BLOOD,URINE NEGATIVE (NEGATIVE); PROTEIN,URINE NEGATIVE (NEGATIVE); UROBILINOGEN,URINE 0.2 mg/dL (<=1.0)
[2019-05-28 20:35] LABS: RBC,URINE None Seen /HPF (0-2)
[2019-05-28 20:36] LABS: BACTERIA,URINE None Seen /HPF (None Seen); RENAL EPITHELIAL CELLS,URINE Rare /LPF (None Seen); SQUAMOUS EPITHELIAL CELL,UR Few /LPF (None Seen)
== END | disposition home or self-care (01) ==
LOC: LABPV 13:28
PROVIDERS: ATTEND Internal Medicine Nephrology
DX: I12.9 Hypertensive chronic kidney disease with stage 1 through stage 4 chronic kidney disease, or unspecified chronic kidney disease (principal); N18.9 Chronic kidney disease, unspecified

== ENCOUNTER 2019-06-16 21:30 | Inpatient (IN) | payer OTHER, MEDICARE ==
[~2019-06-16] VITALS: Ht 149.9 cm; Wt 61.4 kg
[~2019-06-16 21:30] MED LIST changes: +COLC0.6T73 PO; -COLC0.6T76 PO
[2019-06-16] MEDS ORDERED: PRED-284 PO (22:24)
[2019-06-16] MEDS ORDERED: APIX5TAB PO (22:26)
[2019-06-16] MEDS ORDERED: SODIUM CHLORIDE 0.9% 1,700 ML IV ONE (22:36)
[2019-06-16] MEDS ORDERED: ACETAMINOPHEN 500 MG TABLET PO ONE (22:45)
[2019-06-16] MEDS ORDERED: 0.9% SODIUM CHLORIDE 10 ML SYRINGE IVP PRN (22:45)
[2019-06-16 23:01] LABS: BASOPHILS % (AUTO) 0.4 % (0.0-2.0); EOSINOPHILS % (AUTO) 0.2 % (1.0-6.0); HEMOGLOBIN 10.2 g/dL (12.0-16.0); LYMPHOCYTES # (AUTO) 1.1 K/uL (1.0-4.8); LYMPHOCYTES % (AUTO) 8.4 % (22.0-44.0); MEAN CORPUSCULAR HEMOGLOBIN 30.4 pg (26.0-34.0); MEAN CORPUSCULAR HGB CONC 32.9 G/dL (31.0-37.0); MEAN CORPUSCULAR VOLUME 93 fL (80-100); MONOCYTES # (AUTO) 1.1 K/uL (0.1-1.0); MONOCYTES % (AUTO) 8.9 % (2.0-9.0); NEUTROPHILS # (AUTO) 10.3 K/uL (1.8-7.7); NEUTROPHILS % (AUTO) 82.1 % (40.0-70.0); PLATELET COUNT (AUTO) 542 K/uL (150-450); RED BLOOD CELL COUNT(AUTO) 3.36 MIL/uL (4.00-5.20); RED CELL DISTRIBUTION WIDTH 15.5 % (11.5-14.5)
[2019-06-16 23:10] LABS: ANION GAP 13 mmol/L (8-16); CALCIUM, TOTAL 10.3 mg/dL (8.8-10.5); CARBON DIOXIDE 21 mmol/L (22-29); CHLORIDE 106 mmol/L (98-107); CREATININE 1.73 mg/dL (0.60-1.30); GLOMERULAR FILTR. RATE CALC 29 mL/min (>60); GLUCOSE,RANDOM 170 mg/dL (70-110); POTASSIUM 3.9 mmol/L (3.5-5.1); SODIUM SERUM 140 mmol/L (136-145); UREA NITROGEN, BLOOD 27 mg/dL (7-18)
[2019-06-16 23:13] LABS: INR 0.9 (0.9-1.1); PROTHROMBIN TIME 9.3 SEC (9.4-11.6)
[2019-06-16 23:22] LABS: ALANINE AMINOTRANSFERASE 72 U/L (12-78); ALBUMIN 2.9 g/dL (3.4-5.0); ALKALINE PHOSPHATASE 214 U/L (46-116); ASPARTATE AMINOTRANSFERASE 32 U/L (15-37); BILIRUBIN,TOTAL 0.4 mg/dL (0.1-1.0); C-REACTIVE PROTEIN QUANT 7.99 mg/dL (0.00-0.30); HCG,QUANTITATIVE 2 mIU/mL (0-6); TOTAL PROTEIN, SERUM 8.1 g/dL (6.4-8.2)
[2019-06-16 23:35] LABS: B-TYPE NATRIURETIC PEPTIDE 58 pg/mL (0-100)
[2019-06-16 23:50] LABS: LACTIC ACID 2.1 mmol/L (0.4-2.0)
[2019-06-17 00:02] LABS: ERYTHROCYTE SEDIMENTATION RATE 122 MM/HR (0-20)
[2019-06-17] MEDS ORDERED: VANCOMYCIN HCL 1 GM/D5% WATER 200 ML IV ONE (00:45)
[2019-06-17] MEDS ORDERED: MetroNIDAZOLE 500 MG/NACL 100 ML IV ONE (00:45)
[2019-06-17] MEDS ORDERED: CefTRIAXone 1 GM/DEXTROSE 50 ML IV ONE ×2 (00:45)
[2019-06-17 00:54] LABS: APPEARANCE,URINE CLEAR (CLEAR); BILIRUBIN,URINE NEGATIVE (NEGATIVE); GLUCOSE, URINE (UA) NEGATIVE (NEGATIVE); KETONES,URINE NEGATIVE (NEGATIVE); LEUKOCYTE ESTERASE ,URINE NEGATIVE (NEGATIVE); NITRATE,URINE NEGATIVE (NEGATIVE); OCCULT BLOOD,URINE NEGATIVE (NEGATIVE); PROTEIN,URINE TRACE (NEGATIVE); UROBILINOGEN,URINE 0.2 mg/dL (<=1.0)
[2019-06-17 01:09] LABS: INFLUENZA TYPE A NEGATIVE FOR TYPE A (NEGATIVE); INFLUENZA TYPE B NEGATIVE FOR TYPE B (NEGATIVE)
[2019-06-17] MEDS ORDERED: MORPHINE SULFATE 2 MG/ML SYRINGE IVP ONE (01:30)
[2019-06-17] MEDS ORDERED: GADOBUTROL 1 MMOL/ML 10 ML VIAL IVP ONE (02:49)
[2019-06-17] MEDS ORDERED: SODIUM CHLORIDE 0.9% 0 ML IV ONE (05:41)
[2019-06-17] MEDS ORDERED: INSULIN LISPRO 100 UNITS/ML SQ PRN (05:45)
[2019-06-17] MEDS ORDERED: 0.9% SODIUM CHLORIDE 10 ML SYRINGE IVP PRN (05:45)
[2019-06-17] MEDS ORDERED: DEXTROSE 50%-WATER 25 GM/50 ML SYRINGE IVP PRN (05:45)
[2019-06-17] MEDS ORDERED: ONDANSETRON HCL 4 MG/2 ML VIAL IVP PRN (05:45)
[2019-06-17] MEDS: SODIUM CHLORIDE 0.9% 1,000 ML IV SCH ×2 (05:57→16:40)
[2019-06-17 06:38] VITALS: BP 159/63
[2019-06-17] MEDS ORDERED: INFLUENZA VIRUS VACCINE QVS 2019-20 (3YR+)/PF 60 MCG/0.5 ML SYRINGE IM ONE (07:15)
[2019-06-17 08:00] VITALS: BP 173/91
[2019-06-17] MEDS: FAMOTIDINE 10 MG/ML 2 ML VIAL IVP SCH (08:03)
[2019-06-17] MEDS: DOCUSATE SODIUM 100 MG CAPSULE PO SCH ×2 (08:04→20:39)
[2019-06-17] MEDS: OxyCODONE HCL/ACETAMINOPHEN 5-325 MG TABLET PO PRN ×2 (08:04→18:50)
[2019-06-17] MEDS: PredniSONE 5 MG TABLET PO SCH ×2 (08:04→20:34)
[2019-06-17] MEDS: APIXABAN 2.5 MG TABLET PO SCH ×2 (08:04→20:34)
[2019-06-17] MEDS ORDERED: CefTRIAXone SODIUM 1 GM/VIAL IM SCH (09:00)
[2019-06-17] MEDS ORDERED: HydrALAZINE HCL 25 MG TABLET PO SCH (09:00)
[2019-06-17 09:15] VITALS: BP 160/85
[2019-06-17 11:39] VITALS: BP 139/72
[2019-06-17 16:00] VITALS: BP 138/76
[2019-06-17] MEDS: DICLOFENAC SODIUM 1% 100 GM GEL [4GM] TP SCH ×2 (16:33→20:34)
[2019-06-17 19:24] VITALS: BP 191/93
[2019-06-17] MEDS: HydrALAZINE HCL 25 MG TABLET PO SCH (23:29)
[2019-06-18 00:36] VITALS: BP 136/79
[2019-06-18] MEDS ORDERED: CefTRIAXone 1 GM/DEXTROSE 50 ML IV SCH (03:00)
[2019-06-18] MEDS: SODIUM CHLORIDE 0.9% 1,000 ML IV SCH ×2 (04:07→16:02)
[2019-06-18 05:12] VITALS: BP 156/92
[2019-06-18 08:00] VITALS: BP 144/84
[2019-06-18] MEDS: PredniSONE 5 MG TABLET PO SCH ×2 (08:11→20:18)
[2019-06-18] MEDS: OxyCODONE HCL/ACETAMINOPHEN 5-325 MG TABLET PO PRN ×3 (08:11→20:20)
[2019-06-18] MEDS: APIXABAN 2.5 MG TABLET PO SCH ×2 (08:11→20:18)
[2019-06-18] MEDS: HydrALAZINE HCL 25 MG TABLET PO SCH ×2 (08:11→16:01)
[2019-06-18] MEDS: DOCUSATE SODIUM 100 MG CAPSULE PO SCH ×2 (08:11→21:00)
[2019-06-18] MEDS: FAMOTIDINE 10 MG/ML 2 ML VIAL IVP SCH (08:12)
[2019-06-18] MEDS: DICLOFENAC SODIUM 1% 100 GM GEL [4GM] TP SCH ×3 (08:13→21:00)
[2019-06-18 08:28] LABS: BASOPHILS % (AUTO) 0.7 % (0.0-2.0); EOSINOPHILS % (AUTO) 0.5 % (1.0-6.0); HEMATOCRIT 27.3 % (36-46); HEMOGLOBIN 8.9 g/dL (12.0-16.0); LYMPHOCYTES # (AUTO) 1.5 K/uL (1.0-4.8); LYMPHOCYTES % (AUTO) 10.5 % (22.0-44.0); MEAN CORPUSCULAR HEMOGLOBIN 30.1 pg (26.0-34.0); MEAN CORPUSCULAR HGB CONC 32.4 G/dL (31.0-37.0); MEAN CORPUSCULAR VOLUME 93 fL (80-100); MONOCYTES # (AUTO) 0.9 K/uL (0.1-1.0); MONOCYTES % (AUTO) 6.6 % (2.0-9.0); NEUTROPHILS # (AUTO) 11.6 K/uL (1.8-7.7); NEUTROPHILS % (AUTO) 81.7 % (40.0-70.0); PLATELET COUNT (AUTO) 477 K/uL (150-450); RED BLOOD CELL COUNT(AUTO) 2.95 MIL/uL (4.00-5.20); RED CELL DISTRIBUTION WIDTH 15.5 % (11.5-14.5)
[2019-06-18 08:37] LABS: CALCIUM, TOTAL 8.6 mg/dL (8.8-10.5); CREATININE 1.68 mg/dL (0.60-1.30); MAGNESIUM 1.4 mg/dL (1.80-2.40); PHOSPHORUS 2.7 mg/dL (2.5-4.9); POTASSIUM 3.4 mmol/L (3.5-5.1); URIC ACID 8.2 mg/dL (2.6-7.2)
[2019-06-18] MEDS ORDERED: POTASSIUM CHLORIDE 10 MEQ ER TABLET PO ONE (09:15)
[2019-06-18] MEDS ORDERED: MAGNESIUM SULFATE 2 GM/WATER 50 ML IV ONE (11:15)
[2019-06-18 12:00] VITALS: BP 141/85
[2019-06-18 17:07] VITALS: BP 119/68
[2019-06-18 20:00] VITALS: BP 131/81
[2019-06-19 00:28] VITALS: BP 127/70
[2019-06-19] MEDS: HydrALAZINE HCL 25 MG TABLET PO SCH ×4 (01:10→20:18)
[2019-06-19] MEDS: SODIUM CHLORIDE 0.9% 1,000 ML IV SCH ×3 (01:13→23:39)
[2019-06-19 05:01] VITALS: BP 139/71
[2019-06-19 06:17] LABS: BASOPHILS % (AUTO) 0.3 % (0.0-2.0); EOSINOPHILS % (AUTO) 1.8 % (1.0-6.0); HEMATOCRIT 26.8 % (36-46); HEMOGLOBIN 8.6 g/dL (12.0-16.0); LYMPHOCYTES # (AUTO) 0.9 K/uL (1.0-4.8); LYMPHOCYTES % (AUTO) 7.3 % (22.0-44.0); MEAN CORPUSCULAR HEMOGLOBIN 29.9 pg (26.0-34.0); MEAN CORPUSCULAR HGB CONC 32.2 G/dL (31.0-37.0); MEAN CORPUSCULAR VOLUME 93 fL (80-100); MONOCYTES # (AUTO) 0.8 K/uL (0.1-1.0); MONOCYTES % (AUTO) 6.1 % (2.0-9.0); NEUTROPHILS # (AUTO) 10.5 K/uL (1.8-7.7); NEUTROPHILS % (AUTO) 84.5 % (40.0-70.0); PLATELET COUNT (AUTO) 444 K/uL (150-450); RED BLOOD CELL COUNT(AUTO) 2.88 MIL/uL (4.00-5.20); RED CELL DISTRIBUTION WIDTH 15.7 % (11.5-14.5)
[2019-06-19 06:30] LABS: CALCIUM, TOTAL 8.9 mg/dL (8.8-10.5); CREATININE 1.56 mg/dL (0.60-1.30); MAGNESIUM 2.3 mg/dL (1.80-2.40); PHOSPHORUS 3.1 mg/dL (2.5-4.9); POTASSIUM 4.2 mmol/L (3.5-5.1)
[2019-06-19 08:00] VITALS: BP 160/79
[2019-06-19] MEDS: DOCUSATE SODIUM 100 MG CAPSULE PO SCH ×2 (09:00→21:00)
[2019-06-19] MEDS: APIXABAN 2.5 MG TABLET PO SCH ×2 (09:14→20:19)
[2019-06-19] MEDS: PredniSONE 5 MG TABLET PO SCH (09:14)
[2019-06-19] MEDS: FAMOTIDINE 10 MG/ML 2 ML VIAL IVP SCH (09:14)
[2019-06-19] MEDS: OxyCODONE HCL/ACETAMINOPHEN 5-325 MG TABLET PO PRN ×3 (09:14→23:39)
[2019-06-19] MEDS: DICLOFENAC SODIUM 1% 100 GM GEL [4GM] TP SCH ×3 (09:15→21:00)
[2019-06-19 12:00] VITALS: BP 158/83
[2019-06-19 16:00] VITALS: BP 160/65
[2019-06-19 20:15] VITALS: BP 171/73
[2019-06-19] MEDS: PredniSONE 20 MG TABLET PO SCH (20:19)
[2019-06-20] VITALS (8 sets, daily range): BP systolic 142–187; BP diastolic 75–102
[2019-06-20] MEDS ORDERED: CloNIDine HCL 0.1 MG TABLET PO PRN (00:15)
[2019-06-20] MEDS: HydrALAZINE HCL 25 MG TABLET PO SCH ×3 (06:13→19:58)
[2019-06-20] MEDS: APIXABAN 2.5 MG TABLET PO SCH ×2 (08:41→19:58)
[2019-06-20] MEDS: PredniSONE 20 MG TABLET PO SCH ×2 (08:41→19:58)
[2019-06-20] MEDS: FAMOTIDINE 10 MG/ML 2 ML VIAL IVP SCH (08:41)
[2019-06-20] MEDS: DOCUSATE SODIUM 100 MG CAPSULE PO SCH ×2 (08:41→19:58)
[2019-06-20] MEDS: DICLOFENAC SODIUM 1% 100 GM GEL [4GM] TP SCH ×3 (08:42→19:58)
[2019-06-20] MEDS: AmLODIPine BESYLATE 5 MG TABLET PO SCH (10:00)
[2019-06-21] VITALS (9 sets, daily range): BP systolic 124–193; BP diastolic 64–96
[2019-06-21] MEDS: HydrALAZINE HCL 25 MG TABLET PO SCH (05:29)
[2019-06-21] MEDS: APIXABAN 2.5 MG TABLET PO SCH ×2 (07:50→20:32)
[2019-06-21] MEDS: DOCUSATE SODIUM 100 MG CAPSULE PO SCH ×3 (07:50→20:36)
[2019-06-21] MEDS: PredniSONE 20 MG TABLET PO SCH (07:50)
[2019-06-21] MEDS: FAMOTIDINE 10 MG/ML 2 ML VIAL IVP SCH (07:51)
[2019-06-21] MEDS: DICLOFENAC SODIUM 1% 100 GM GEL [4GM] TP SCH ×3 (07:57→21:00)
[2019-06-21] MEDS: AmLODIPine BESYLATE 5 MG TABLET PO SCH (09:00)
[2019-06-21] MEDS: LIDOCAINE 5% TRANSDERMAL PATCH TD SCH (15:19)
[2019-06-21] MEDS: HydrALAZINE HCL 50 MG TABLET PO SCH ×2 (16:37→20:32)
[2019-06-21] MEDS: PredniSONE 10 MG TABLET PO SCH (20:33)
[2019-06-22 05:00] VITALS: BP 152/76
[2019-06-22 07:50] VITALS: BP 167/77
[2019-06-22] MEDS: PredniSONE 10 MG TABLET PO SCH ×2 (08:38→21:28)
[2019-06-22] MEDS: HydrALAZINE HCL 50 MG TABLET PO SCH ×3 (08:38→21:24)
[2019-06-22] MEDS: FAMOTIDINE 10 MG/ML 2 ML VIAL IVP SCH (08:38)
[2019-06-22] MEDS: LIDOCAINE 5% TRANSDERMAL PATCH TD SCH (08:39)
[2019-06-22] MEDS: APIXABAN 2.5 MG TABLET PO SCH ×2 (08:39→21:28)
[2019-06-22] MEDS: DICLOFENAC SODIUM 1% 100 GM GEL [4GM] TP SCH ×3 (08:40→21:00)
[2019-06-22] MEDS: DOCUSATE SODIUM 100 MG CAPSULE PO SCH ×2 (09:00→21:00)
[2019-06-22] MEDS: OxyCODONE HCL/ACETAMINOPHEN 5-325 MG TABLET PO PRN (09:45)
[2019-06-22 11:50] VITALS: BP 161/76
[2019-06-22 15:10] VITALS: BP 140/72
[2019-06-22 21:03] VITALS: BP 150/78
[2019-06-22 23:47] VITALS: BP 139/72
[2019-06-23 04:32] VITALS: BP 153/74
[2019-06-23 08:11] VITALS: BP 174/73
[2019-06-23] MEDS: DICLOFENAC SODIUM 1% 100 GM GEL [4GM] TP SCH (09:00)
[2019-06-23] MEDS: APIXABAN 2.5 MG TABLET PO SCH (09:23)
[2019-06-23] MEDS: PredniSONE 10 MG TABLET PO SCH (09:23)
[2019-06-23] MEDS: DOCUSATE SODIUM 100 MG CAPSULE PO SCH (09:23)
[2019-06-23] MEDS: HydrALAZINE HCL 50 MG TABLET PO SCH (09:23)
[2019-06-23] MEDS: LIDOCAINE 5% TRANSDERMAL PATCH TD SCH (09:24)
[2019-06-23] MEDS: FAMOTIDINE 10 MG/ML 2 ML VIAL IVP SCH (09:25)
[2019-06-23 09:35] VITALS: BP 140/66
[2019-06-23] MEDS: OxyCODONE HCL/ACETAMINOPHEN 5-325 MG TABLET PO PRN (09:59)
[2019-06-23 11:44] VITALS: BP 135/75
== END 2019-06-23 15:08 | DRG 553 ==
LOC: EMS 21:31 → 4E 06-17 03:30
PROVIDERS: ADMIT Internal Medicine; ATTEND Internal Medicine
DX: M10.9 Gout, unspecified (principal); E43 Unspecified severe protein-calorie malnutrition; R65.11 Systemic inflammatory response syndrome (SIRS) of non-infectious origin with acute organ dysfunction; N18.6 End stage renal disease; N17.9 Acute kidney failure, unspecified; I12.0 Hypertensive chronic kidney disease with stage 5 chronic kidney disease or end stage renal disease; D64.9 Anemia, unspecified; E87.6 Hypokalemia; Z88.8 Allergy status to other drugs, medicaments and biological substances; M19.90 Unspecified osteoarthritis, unspecified site; E11.65 Type 2 diabetes mellitus with hyperglycemia; M06.9 Rheumatoid arthritis, unspecified; D72.829 Elevated white blood cell count, unspecified; Z87.440 Personal history of urinary (tract) infections; Z79.899 Other long term (current) drug therapy; Z68.27 Body mass index [BMI] 27.0-27.9, adult
CPT/HCPCS: 71250; 72158; 74176; 83036; 83605; 83735; 84100; 84145; 84550; 85651; 86140; 87040; 87804; 93005; 96365; 96366; 96375; 97116; 97162; 97530; A9585; G0378; J0696; J2270; J3370; J3475; J3490; J7030; J7040

== ENCOUNTER 2019-06-23 15:10 | Inpatient (IN) | payer OTHER, MEDICARE ==
[~2019-06-23] VITALS: Ht 149.9 cm; Wt 59.0 kg
[~2019-06-23 15:10] MED LIST changes: +APIX5TAB PO; +PRED-284 PO
[2019-06-23 15:15] VITALS: BP 122/71
[2019-06-23 15:30] VITALS: BP 143/75
[2019-06-23] MEDS ORDERED: CloNIDine HCL 0.1 MG TABLET PO PRN ×2 (17:30→18:15)
[2019-06-23] MEDS ORDERED: ACETAMINOPHEN 325 MG TABLET PO PRN ×2 (17:45→18:15)
[2019-06-23] MEDS ORDERED: INFLUENZA VIRUS VACCINE QVS 2019-20 (3YR+)/PF 60 MCG/0.5 ML SYRINGE IM ONE (17:45)
[2019-06-23] MEDS ORDERED: OxyCODONE HCL/ACETAMINOPHEN 5-325 MG TABLET PO PRN ×2 (17:45)
[2019-06-23] MEDS ORDERED: HYDROCODONE/ACETAMINOPHEN 5-325 MG TABLET PO PRN (18:15)
[2019-06-23] MEDS ORDERED: MELATONIN 5 MG TABLET PO PRN (18:15)
[2019-06-23] MEDS ORDERED: HYDROCODONE/ACETAMINOPHEN 10-325 MG TABLET PO PRN (18:15)
[2019-06-23 20:05] VITALS: BP 165/76
[2019-06-23] MEDS: -LIDODERM PATCH NOTE- MISC SCH (20:05)
[2019-06-23] MEDS: HydrALAZINE HCL 50 MG TABLET PO SCH (20:14)
[2019-06-23] MEDS: PredniSONE 10 MG TABLET PO SCH (20:14)
[2019-06-23] MEDS: APIXABAN 2.5 MG TABLET PO SCH (20:14)
[2019-06-23] MEDS: DOCUSATE SODIUM 100 MG CAPSULE PO SCH (20:15)
[2019-06-23] MEDS: DICLOFENAC SODIUM 1% 100 GM GEL [4GM] TP SCH (20:15)
[2019-06-23] MEDS: SENNA 187 MG TABLET PO SCH (20:15)
[2019-06-23] MEDS ORDERED: PredniSONE 10 MG TABLET PO SCH (21:00)
[2019-06-23] MEDS ORDERED: APIXABAN 2.5 MG TABLET PO SCH (21:00)
[2019-06-23] MEDS ORDERED: SENNA 187 MG TABLET PO SCH (21:00)
[2019-06-23] MEDS ORDERED: -LIDODERM PATCH NOTE- MISC SCH (21:00)
[2019-06-23] MEDS ORDERED: HydrALAZINE HCL 50 MG TABLET PO SCH (21:00)
[2019-06-23] MEDS ORDERED: DICLOFENAC SODIUM 1% 100 GM GEL [4GM] TP SCH (21:00)
[2019-06-23] MEDS ORDERED: DOCUSATE SODIUM 100 MG CAPSULE PO SCH (21:00)
[2019-06-24 02:00] VITALS: BP 145/76
[2019-06-24 06:14] LABS: BASOPHILS % (AUTO) 0.1 % (0.0-2.0); EOSINOPHILS % (AUTO) 0 % (1.0-6.0); HEMATOCRIT 28.3 % (36-46); HEMOGLOBIN 9.1 g/dL (12.0-16.0); LYMPHOCYTES # (AUTO) 1.1 K/uL (1.0-4.8); LYMPHOCYTES % (AUTO) 9.9 % (22.0-44.0); MEAN CORPUSCULAR HEMOGLOBIN 29.3 pg (26.0-34.0); MEAN CORPUSCULAR HGB CONC 32.1 G/dL (31.0-37.0); MEAN CORPUSCULAR VOLUME 91 fL (80-100); MONOCYTES # (AUTO) 0.4 K/uL (0.1-1.0); MONOCYTES % (AUTO) 3.7 % (2.0-9.0); NEUTROPHILS # (AUTO) 9.9 K/uL (1.8-7.7); PLATELET COUNT (AUTO) 575 K/uL (150-450); RED BLOOD CELL COUNT(AUTO) 3.11 MIL/uL (4.00-5.20); RED CELL DISTRIBUTION WIDTH 15.6 % (11.5-14.5)
[2019-06-24 06:16] LABS: NEUTROPHILS % (AUTO) 86.3 % (40.0-70.0)
[2019-06-24 06:40] LABS: ALBUMIN 2.3 g/dL (3.4-5.0); BILIRUBIN,TOTAL 0.3 mg/dL (0.1-1.0); CALCIUM, TOTAL 9.4 mg/dL (8.8-10.5); CREATININE 1.64 mg/dL (0.60-1.30); POTASSIUM 4.3 mmol/L (3.5-5.1); TOTAL PROTEIN, SERUM 6.3 g/dL (6.4-8.2)
[2019-06-24] MEDS: LIDOCAINE 5% TRANSDERMAL PATCH TD SCH (08:55)
[2019-06-24] MEDS: PredniSONE 10 MG TABLET PO SCH ×2 (08:55→20:41)
[2019-06-24] MEDS: APIXABAN 2.5 MG TABLET PO SCH ×2 (08:56→20:40)
[2019-06-24] MEDS: HydrALAZINE HCL 50 MG TABLET PO SCH ×3 (08:56→20:40)
[2019-06-24] MEDS: DOCUSATE SODIUM 100 MG CAPSULE PO SCH ×2 (08:56→20:41)
[2019-06-24] MEDS ORDERED: LIDOCAINE 5% TRANSDERMAL PATCH TD SCH (09:00)
[2019-06-24] MEDS: DICLOFENAC SODIUM 1% 100 GM GEL [4GM] TP SCH ×3 (09:00→20:42)
[2019-06-24] MEDS ORDERED: FAMOTIDINE 20 MG TABLET PO SCH (09:00)
[2019-06-24 09:05] VITALS: BP 159/78
[2019-06-24] MEDS ORDERED: INFLUENZA VIRUS VACCINE QVS 2019-20 (3YR+)/PF 60 MCG/0.5 ML SYRINGE IM ONE (10:00)
[2019-06-24 15:39] VITALS: BP 125/83
[2019-06-24] MEDS: FAMOTIDINE 20 MG TABLET PO SCH (20:40)
[2019-06-24] MEDS: -LIDODERM PATCH NOTE- MISC SCH (20:41)
[2019-06-24] MEDS: SENNA 187 MG TABLET PO SCH (20:41)
[2019-06-24] MEDS: CARVEDILOL 3.125 MG TABLET PO SCH ×2 (20:41→20:51)
[2019-06-25] VITALS: BP 145/71
[2019-06-25] MEDS: HydrALAZINE HCL 50 MG TABLET PO SCH ×3 (08:36→20:49)
[2019-06-25] MEDS: APIXABAN 2.5 MG TABLET PO SCH ×2 (08:37→20:49)
[2019-06-25] MEDS: CARVEDILOL 3.125 MG TABLET PO SCH ×2 (08:38→20:50)
[2019-06-25 08:43] VITALS: BP 149/83
[2019-06-25] MEDS: DICLOFENAC SODIUM 1% 100 GM GEL [4GM] TP SCH ×3 (09:00→20:50)
[2019-06-25] MEDS: DOCUSATE SODIUM 100 MG CAPSULE PO SCH ×2 (09:00→20:50)
[2019-06-25] MEDS: LIDOCAINE 5% TRANSDERMAL PATCH TD SCH (09:00)
[2019-06-25] MEDS ORDERED: PredniSONE 10 MG TABLET PO ONE (09:45)
[2019-06-25] MEDS: FAMOTIDINE 20 MG TABLET PO SCH ×2 (09:55→20:49)
[2019-06-25 16:58] VITALS: BP 139/66
[2019-06-25] MEDS: -LIDODERM PATCH NOTE- MISC SCH (20:48)
[2019-06-25] MEDS: SENNA 187 MG TABLET PO SCH (20:50)
[2019-06-25 23:39] VITALS: BP 121/54
[2019-06-26 08:18] VITALS: BP 150/76
[2019-06-26] MEDS: LIDOCAINE 5% TRANSDERMAL PATCH TD SCH (09:00)
[2019-06-26] MEDS: CARVEDILOL 3.125 MG TABLET PO SCH ×2 (09:00→20:08)
[2019-06-26] MEDS: DICLOFENAC SODIUM 1% 100 GM GEL [4GM] TP SCH (09:00)
[2019-06-26] MEDS: DOCUSATE SODIUM 100 MG CAPSULE PO SCH (09:00)
[2019-06-26] MEDS ORDERED: PredniSONE 20 MG TABLET PO SCH (09:00)
[2019-06-26] MEDS: HydrALAZINE HCL 50 MG TABLET PO SCH ×3 (09:16→20:08)
[2019-06-26] MEDS: FAMOTIDINE 20 MG TABLET PO SCH ×2 (09:16→20:08)
[2019-06-26] MEDS: APIXABAN 2.5 MG TABLET PO SCH ×2 (09:17→20:08)
[2019-06-26 10:45] VITALS: BP 136/76
[2019-06-26] MEDS ORDERED: DOCUSATE SODIUM 100 MG CAPSULE PO PRN (10:45)
[2019-06-26] MEDS ORDERED: SENNA 187 MG TABLET PO PRN (10:45)
[2019-06-26] MEDS ORDERED: FAMO20 PO (13:55)
[2019-06-26] MEDS ORDERED: HYDR-2924 PO (13:55)
[2019-06-26] MEDS ORDERED: APIX2.5T PO (13:55)
[2019-06-26 15:53] VITALS: BP 133/70
[2019-06-26 20:08] VITALS: BP 138/70
[2019-06-26 23:33] VITALS: BP 123/63
[2019-06-27 08:52] VITALS: BP 139/65
[2019-06-27] MEDS: HydrALAZINE HCL 50 MG TABLET PO SCH ×3 (09:17→21:00)
[2019-06-27] MEDS: APIXABAN 2.5 MG TABLET PO SCH ×2 (09:17→21:01)
[2019-06-27] MEDS: FAMOTIDINE 20 MG TABLET PO SCH ×2 (09:17→21:01)
[2019-06-27] MEDS: CARVEDILOL 3.125 MG TABLET PO SCH ×2 (09:17→21:01)
[2019-06-27] MEDS ORDERED: PNEUMOCOCCAL VACCINE POLYVALENT 0.5 ML VIAL [PPSV23] IM ONE (13:30)
[2019-06-27] MEDS ORDERED: INFLUENZA VIRUS VACCINE QVS 2019-20 (3YR+)/PF 60 MCG/0.5 ML SYRINGE IM ONE (13:30)
[2019-06-27] MEDS: ALLOPURINOL 100 MG TABLET PO SCH (14:16)
[2019-06-27] MEDS: LIDOCAINE 5% TRANSDERMAL PATCH TD SCH (14:17)
[2019-06-27] MEDS: PredniSONE 10 MG TABLET PO SCH (14:17)
[2019-06-27 15:18] VITALS: BP 100/61
[2019-06-27 21:00] VITALS: BP 138/67
[2019-06-27] MEDS: -LIDODERM PATCH NOTE- MISC SCH (21:01)
[2019-06-27 23:45] VITALS: BP 122/66
[2019-06-28 07:17] LABS: BASOPHILS % (AUTO) 0.3 % (0.0-2.0); EOSINOPHILS % (AUTO) 1.8 % (1.0-6.0); HEMATOCRIT 27.4 % (36-46); HEMOGLOBIN 8.9 g/dL (12.0-16.0); LYMPHOCYTES # (AUTO) 2.1 K/uL (1.0-4.8); LYMPHOCYTES % (AUTO) 18.2 % (22.0-44.0); MEAN CORPUSCULAR HEMOGLOBIN 29.7 pg (26.0-34.0); MEAN CORPUSCULAR HGB CONC 32.5 G/dL (31.0-37.0); MEAN CORPUSCULAR VOLUME 91 fL (80-100); MONOCYTES # (AUTO) 0.8 K/uL (0.1-1.0); MONOCYTES % (AUTO) 7.2 % (2.0-9.0); NEUTROPHILS # (AUTO) 8.4 K/uL (1.8-7.7); NEUTROPHILS % (AUTO) 72.5 % (40.0-70.0); PLATELET COUNT (AUTO) 483 K/uL (150-450); RED CELL DISTRIBUTION WIDTH 16.6 % (11.5-14.5)
[2019-06-28 07:31] LABS: CALCIUM, TOTAL 9.4 mg/dL (8.8-10.5); CREATININE 1.53 mg/dL (0.60-1.30)
[2019-06-28 07:47] LABS: URIC ACID 9.2 mg/dL (2.6-7.2)
[2019-06-28 08:00] VITALS: BP 109/55
[2019-06-28] MEDS: CARVEDILOL 3.125 MG TABLET PO SCH ×2 (08:49→20:12)
[2019-06-28] MEDS: FAMOTIDINE 20 MG TABLET PO SCH ×2 (08:49→20:11)
[2019-06-28] MEDS: PredniSONE 10 MG TABLET PO SCH (08:49)
[2019-06-28] MEDS: APIXABAN 2.5 MG TABLET PO SCH ×2 (08:49→20:11)
[2019-06-28] MEDS: HydrALAZINE HCL 50 MG TABLET PO SCH ×3 (08:49→20:11)
[2019-06-28] MEDS: ALLOPURINOL 100 MG TABLET PO SCH (08:49)
[2019-06-28] MEDS: LIDOCAINE 5% TRANSDERMAL PATCH TD SCH (08:56)
[2019-06-28 15:10] VITALS: BP 137/78
[2019-06-28 16:34] VITALS: BP 124/73
[2019-06-28] MEDS: -LIDODERM PATCH NOTE- MISC SCH (19:54)
[2019-06-28 20:10] VITALS: BP 131/74
[2019-06-29 00:10] VITALS: BP 107/53
[2019-06-29] MEDS ORDERED: PredniSONE 5 MG TABLET PO SCH (09:00)
[2019-06-29 09:09] VITALS: BP 125/62
[2019-06-29] MEDS: HydrALAZINE HCL 50 MG TABLET PO SCH ×3 (09:29→21:15)
[2019-06-29] MEDS: LIDOCAINE 5% TRANSDERMAL PATCH TD SCH (09:29)
[2019-06-29] MEDS: ALLOPURINOL 100 MG TABLET PO SCH (09:29)
[2019-06-29] MEDS: FERROUS GLUCONATE 324 MG TABLET PO SCH (09:29)
[2019-06-29] MEDS: FAMOTIDINE 20 MG TABLET PO SCH ×2 (09:30→21:15)
[2019-06-29] MEDS: APIXABAN 2.5 MG TABLET PO SCH ×2 (09:30→21:15)
[2019-06-29] MEDS: CARVEDILOL 3.125 MG TABLET PO SCH ×2 (09:30→21:16)
[2019-06-29 15:59] VITALS: BP 118/58
[2019-06-29] MEDS: -LIDODERM PATCH NOTE- MISC SCH (21:15)
[2019-06-30 00:59] VITALS: BP 128/58
[2019-06-30] MEDS ORDERED: FERG325 PO (04:18)
[2019-06-30] MEDS ORDERED: CARV3 PO (04:18)
[2019-06-30] MEDS ORDERED: LIDO700A15 TD (04:18)
[2019-06-30] MEDS ORDERED: ALLO100T PO (04:18)
[2019-06-30] MEDS: FAMOTIDINE 20 MG TABLET PO SCH ×2 (08:52→20:57)
[2019-06-30] MEDS: CARVEDILOL 3.125 MG TABLET PO SCH ×2 (08:52→20:57)
[2019-06-30] MEDS: FERROUS GLUCONATE 324 MG TABLET PO SCH (08:52)
[2019-06-30] MEDS: ALLOPURINOL 100 MG TABLET PO SCH (08:52)
[2019-06-30] MEDS: LIDOCAINE 5% TRANSDERMAL PATCH TD SCH (08:52)
[2019-06-30] MEDS: APIXABAN 2.5 MG TABLET PO SCH ×2 (08:53→20:57)
[2019-06-30] MEDS: HydrALAZINE HCL 50 MG TABLET PO SCH ×3 (08:53→20:57)
[2019-06-30 10:36] VITALS: BP 119/58
[2019-06-30 15:36] VITALS: BP 104/58
[2019-06-30] MEDS: -LIDODERM PATCH NOTE- MISC SCH (20:58)
[2019-07-01 00:54] VITALS: BP 117/53
[2019-07-01] MEDS: FERROUS GLUCONATE 324 MG TABLET PO SCH (08:26)
[2019-07-01] MEDS: LIDOCAINE 5% TRANSDERMAL PATCH TD SCH (08:26)
[2019-07-01] MEDS: FAMOTIDINE 20 MG TABLET PO SCH (08:27)
[2019-07-01] MEDS: CARVEDILOL 3.125 MG TABLET PO SCH (08:27)
[2019-07-01] MEDS: ALLOPURINOL 100 MG TABLET PO SCH (08:27)
[2019-07-01] MEDS: APIXABAN 2.5 MG TABLET PO SCH (08:27)
[2019-07-01] MEDS: HydrALAZINE HCL 50 MG TABLET PO SCH (08:30)
[2019-07-01 08:57] VITALS: BP 125/51
== END 2019-07-01 16:00 | disposition home or self-care (01) | DRG 546 ==
LOC: 2WR 15:10
PROVIDERS: ATTEND Physical Medicine & Rehabilitation
PROC: 3E02340 Introduction of Influenza Vaccine into Muscle, Percutaneous Approach (ICD-10-PCS; 2019-06-24)
PROC: 3E0234Z Introduction of Serum, Toxoid and Vaccine into Muscle, Percutaneous Approach (ICD-10-PCS; principal; 2019-06-27)
DX: M06.9 Rheumatoid arthritis, unspecified (principal); N17.9 Acute kidney failure, unspecified; D64.9 Anemia, unspecified; E04.2 Nontoxic multinodular goiter; I12.9 Hypertensive chronic kidney disease with stage 1 through stage 4 chronic kidney disease, or unspecified chronic kidney disease; M10.9 Gout, unspecified; D63.8 Anemia in other chronic diseases classified elsewhere; G47.00 Insomnia, unspecified; M13.0 Polyarthritis, unspecified; T38.0X5A Adverse effect of glucocorticoids and synthetic analogues, initial encounter; N18.9 Chronic kidney disease, unspecified; N20.0 Calculus of kidney; Z79.899 Other long term (current) drug therapy; Z86.718 Personal history of other venous thrombosis and embolism; Z87.19 Personal history of other diseases of the digestive system; Z23 Encounter for immunization
CPT/HCPCS: 84550; 87081; 90686; 90732; 97110; 97116; 97150; 97163; 97166; 97530; 97535; 99366

== ENCOUNTER 2019-09-15 10:17 | Emergency (ER) | payer OTHER, MEDICARE ==
[~2019-09-15] VITALS: Ht 149.9 cm; Wt 56.8 kg
[~2019-09-15 10:17] MED LIST changes: +ALLO100T PO; +APIX2.5T PO; -APIX5TAB PO; +CARV3 PO; -COLC0.6T73 PO; +FAMO20 PO; +FERG325 PO; +HYDR-2924 PO; -HYDR25TA84 PO; +LIDO700A15 TD; -PRED-284 PO
[2019-09-15 13:04] VITALS: BP 113/74
[2019-09-15] MEDS ORDERED: BACITRACIN 0.9 GM PACKET OINTMENT TP ONE (13:45)
== END 2019-09-15 14:08 | disposition home or self-care (01) ==
LOC: EMS 10:21
DX: M10.9 Gout, unspecified (principal); B36.9 Superficial mycosis, unspecified; I10 Essential (primary) hypertension; Z88.6 Allergy status to analgesic agent; Z79.899 Other long term (current) drug therapy
CPT/HCPCS: 84550

== ENCOUNTER 2019-09-17 10:07 | Inpatient (IN) | payer OTHER, MEDICARE ==
[~2019-09-17] VITALS: Ht 154.9 cm; Wt 63.2 kg
[2019-09-17] MEDS ORDERED: SODIUM CHLORIDE 0.9% 1,000 ML IV ONE ×3 (10:19→20:15)
[2019-09-17 10:49] LABS: GLUCOSE,POINT OF CARE 141 MG/DL (70-110)
[2019-09-17] MEDS ORDERED: ACETAMINOPHEN 1000 MG/ISO-OSM 100 ML IV ONE ×2 (11:15→16:15)
[2019-09-17 11:16] LABS: BASOPHILS % (AUTO) 0.6 % (0.0-2.0); EOSINOPHILS % (AUTO) 0 % (1.0-6.0); HEMOGLOBIN 10.4 g/dL (12.0-16.0); LYMPHOCYTES # (AUTO) 0.5 K/uL (1.0-4.8); LYMPHOCYTES % (AUTO) 3.9 % (22.0-44.0); MEAN CORPUSCULAR HEMOGLOBIN 32.1 pg (26.0-34.0); MEAN CORPUSCULAR HGB CONC 33.7 G/dL (31.0-37.0); MEAN CORPUSCULAR VOLUME 95 fL (80-100); MONOCYTES # (AUTO) 0.2 K/uL (0.1-1.0); MONOCYTES % (AUTO) 1.6 % (2.0-9.0); NEUTROPHILS # (AUTO) 12.6 K/uL (1.8-7.7); PLATELET COUNT (AUTO) 408 K/uL (150-450); RED BLOOD CELL COUNT(AUTO) 3.26 MIL/uL (4.00-5.20); RED CELL DISTRIBUTION WIDTH 15.4 % (11.5-14.5)
[2019-09-17 11:17] LABS: NEUTROPHILS % (AUTO) 93.9 % (40.0-70.0)
[2019-09-17 11:30] LABS: SALICYLATE 0.2 mg/dL (2.8-20.0)
[2019-09-17 11:33] LABS: ANION GAP 13 mmol/L (8-16); CALCIUM, TOTAL 9.9 mg/dL (8.8-10.5); CARBON DIOXIDE 21 mmol/L (22-29); CHLORIDE 100 mmol/L (98-107); CREATININE 1.76 mg/dL (0.60-1.30); GLOMERULAR FILTR. RATE CALC 29 mL/min (>60); GLUCOSE,RANDOM 156 mg/dL (70-110); POTASSIUM 3.2 mmol/L (3.5-5.1); SODIUM SERUM 134 mmol/L (136-145); UREA NITROGEN, BLOOD 22 mg/dL (7-18)
[2019-09-17 11:41] LABS: ALANINE AMINOTRANSFERASE 144 U/L (12-78); ALKALINE PHOSPHATASE 501 U/L (46-116); ASPARTATE AMINOTRANSFERASE 121 U/L (15-37); BILIRUBIN,TOTAL 0.9 mg/dL (0.1-1.0); TOTAL PROTEIN, SERUM 7.7 g/dL (6.4-8.2)
[2019-09-17 11:42] LABS: ACETAMINOPHEN < 2 mcg/mL (10-30); TROPONIN I < 0.02 ng/mL (0.00-0.05)
[2019-09-17 11:43] LABS: B-TYPE NATRIURETIC PEPTIDE 90 pg/mL (0-100)
[2019-09-17 11:56] LABS: INFLUENZA TYPE A NEGATIVE FOR TYPE A (NEGATIVE); INFLUENZA TYPE B NEGATIVE FOR TYPE B (NEGATIVE)
[2019-09-17 12:07] LABS: AMMONIA < 10 umol/L (11-32)
[2019-09-17 12:36] LABS: AMPHET/METH SCREEN,URINE NEGATIVE (NEGATIVE); BARBITURATE SCREEN, URINE NEGATIVE (NEGATIVE); BENZODIAZEPINES SCREEN,URINE NEGATIVE (NEGATIVE); CANNABINOID SCREEN,URINE NEGATIVE (NEGATIVE); COCAINE SCREEN,URINE NEGATIVE (NEGATIVE); METHADONE SCREEN, URINE NEGATIVE (NEGATIVE); OPIATE SCREEN,URINE NEGATIVE (NEGATIVE)
[2019-09-17 12:40] LABS: APPEARANCE,URINE CLOUDY (CLEAR); BILIRUBIN,URINE NEGATIVE (NEGATIVE); GLUCOSE, URINE (UA) NEGATIVE (NEGATIVE); KETONES,URINE NEGATIVE (NEGATIVE); NITRATE,URINE NEGATIVE (NEGATIVE); OCCULT BLOOD,URINE MODERATE (NEGATIVE); PROTEIN,URINE SEE CONFIRM (NEGATIVE); UROBILINOGEN,URINE 0.2 mg/dL (<=1.0)
[2019-09-17 12:52] LABS: PHENCYCLIDINE SCREEN,URINE NEGATIVE (NEGATIVE)
[2019-09-17 12:54] LABS: BACTERIA,URINE Few /HPF (None Seen); LEUKOCYTE ESTERASE ,URINE MODERATE (NEGATIVE); SULFOSALICYLIC ACID,URINE 3+ (Negative)
[2019-09-17 12:55] LABS: RENAL EPITHELIAL CELLS,URINE Rare /LPF (None Seen)
[2019-09-17] MEDS ORDERED: POTASSIUM CHL 40 MEQ/D5-0.45NS 1,000 ML IV ONE (14:15)
[2019-09-17] MEDS ORDERED: CefTRIAXone 1 GM/DEXTROSE 50 ML IV ONE (14:45)
[2019-09-17] MEDS ORDERED: ACETAMINOPHEN 325 MG TABLET PO PRN (15:30)
[2019-09-17] MEDS ORDERED: ONDANSETRON HCL 4 MG/2 ML VIAL IVP PRN ×2 (15:30→20:15)
[2019-09-17] MEDS ORDERED: 0.9% SODIUM CHLORIDE 10 ML SYRINGE IVP PRN ×2 (15:30→20:15)
[2019-09-17 20:00] VITALS: BP 94/45
[2019-09-17] MEDS ORDERED: ZOLPIDEM TARTRATE 5 MG TABLET PO PRN (20:15)
[2019-09-17] MEDS ORDERED: MAGNESIUM OXIDE 400 MG TABLET PO PRN (20:30)
[2019-09-17] MEDS ORDERED: MAGNESIUM SULFATE 2 GM/WATER 50 ML IV PRN (20:30)
[2019-09-17] MEDS ORDERED: POTASSIUM CHL 10 MEQ/WATER 50 ML IV PRN (20:30)
[2019-09-17] MEDS ORDERED: POTASSIUM CHLORIDE 20 MEQ ER TABLET PO PRN (20:30)
[2019-09-17] MEDS ORDERED: MAGNESIUM SULFATE 4 GM/WATER 100 ML IV PRN (20:30)
[2019-09-17] MEDS: ENOXAPARIN SODIUM 30 MG/0.3 ML PF SYRINGE SQ SCH (21:08)
[2019-09-17] MEDS: ACETAMINOPHEN 325 MG TABLET PO PRN (21:09)
[2019-09-17] MEDS: PANTOPRAZOLE SODIUM 40 MG DR TABLET PO SCH (21:09)
[2019-09-17] MEDS: DOCUSATE SODIUM 100 MG CAPSULE PO SCH (21:09)
[2019-09-17 23:59] VITALS: BP 98/55
[2019-09-18 04:33] VITALS: BP 98/59
[2019-09-18 07:25] VITALS: BP 149/72
[2019-09-18] MEDS: ENOXAPARIN SODIUM 30 MG/0.3 ML PF SYRINGE SQ SCH (08:50)
[2019-09-18] MEDS: PANTOPRAZOLE SODIUM 40 MG DR TABLET PO SCH (08:50)
[2019-09-18] MEDS: DOCUSATE SODIUM 100 MG CAPSULE PO SCH ×2 (08:51→20:43)
[2019-09-18 10:06] LABS: BASOPHILS % (AUTO) 0.1 % (0.0-2.0); EOSINOPHILS % (AUTO) 1.4 % (1.0-6.0); HEMATOCRIT 25.6 % (36-46); HEMOGLOBIN 8.3 g/dL (12.0-16.0); LYMPHOCYTES % (AUTO) 3.6 % (22.0-44.0); MEAN CORPUSCULAR HGB CONC 32.5 G/dL (31.0-37.0); MEAN CORPUSCULAR VOLUME 95 fL (80-100); MONOCYTES # (AUTO) 0.8 K/uL (0.1-1.0); NEUTROPHILS # (AUTO) 26.1 K/uL (1.8-7.7); PLATELET COUNT (AUTO) 311 K/uL (150-450); RED BLOOD CELL COUNT(AUTO) 2.69 MIL/uL (4.00-5.20); RED CELL DISTRIBUTION WIDTH 15.9 % (11.5-14.5)
[2019-09-18 10:08] LABS: NEUTROPHILS % (AUTO) 91.9 % (40.0-70.0)
[2019-09-18 10:13] LABS: CALCIUM, TOTAL 8.5 mg/dL (8.8-10.5); CREATININE 2.43 mg/dL (0.60-1.30); MAGNESIUM 1.4 mg/dL (1.80-2.40)
[2019-09-18] MEDS: COLCHICINE 0.6 MG TABLET PO SCH ×2 (10:15→20:43)
[2019-09-18] MEDS: CARVEDILOL 3.125 MG TABLET PO SCH (11:02)
[2019-09-18] MEDS: FERROUS GLUCONATE 324 MG TABLET PO SCH (11:02)
[2019-09-18] MEDS: APIXABAN 2.5 MG TABLET PO SCH ×2 (11:02→20:28)
[2019-09-18] MEDS: ALLOPURINOL 100 MG TABLET PO SCH (11:02)
[2019-09-18 11:08] VITALS: BP 144/71
[2019-09-18] MEDS: LEVOFLOXACIN 250 MG TABLET PO SCH (13:32)
[2019-09-18] MEDS: CefTRIAXone 1 GM/DEXTROSE 50 ML IV SCH (14:00)
[2019-09-18 16:00] VITALS: BP 105/48
[2019-09-18] MEDS: HydrALAZINE HCL 50 MG TABLET PO SCH ×2 (16:04→21:00)
[2019-09-18 20:04] VITALS: BP 111/57
[2019-09-18 23:43] VITALS: BP 131/77
[2019-09-19] MEDS: CARVEDILOL 3.125 MG TABLET PO SCH ×3 (00:12→20:27)
[2019-09-19 08:00] LABS: BASOPHILS % (AUTO) 0.3 % (0.0-2.0); EOSINOPHILS % (AUTO) 0.8 % (1.0-6.0); HEMATOCRIT 25.1 % (36-46); HEMOGLOBIN 8.3 g/dL (12.0-16.0); LYMPHOCYTES # (AUTO) 0.9 K/uL (1.0-4.8); LYMPHOCYTES % (AUTO) 4.5 % (22.0-44.0); MEAN CORPUSCULAR HEMOGLOBIN 31.3 pg (26.0-34.0); MEAN CORPUSCULAR HGB CONC 33.2 G/dL (31.0-37.0); MEAN CORPUSCULAR VOLUME 95 fL (80-100); MONOCYTES # (AUTO) 0.5 K/uL (0.1-1.0); MONOCYTES % (AUTO) 2.5 % (2.0-9.0); NEUTROPHILS # (AUTO) 18.1 K/uL (1.8-7.7); PLATELET COUNT (AUTO) 283 K/uL (150-450); RED BLOOD CELL COUNT(AUTO) 2.66 MIL/uL (4.00-5.20)
[2019-09-19 08:02] LABS: ALBUMIN 1.8 g/dL (3.4-5.0); BILIRUBIN,TOTAL 0.2 mg/dL (0.1-1.0); CREATININE 2.58 mg/dL (0.60-1.30); MAGNESIUM 2.3 mg/dL (1.80-2.40); TOTAL PROTEIN, SERUM 5.7 g/dL (6.4-8.2)
[2019-09-19 08:03] LABS: NEUTROPHILS % (AUTO) 91.9 % (40.0-70.0)
[2019-09-19 08:10] VITALS: BP 120/68
[2019-09-19] MEDS: DOCUSATE SODIUM 100 MG CAPSULE PO SCH ×2 (09:00→20:26)
[2019-09-19] MEDS: HydrALAZINE HCL 50 MG TABLET PO SCH ×3 (09:00→20:26)
[2019-09-19] MEDS: COLCHICINE 0.6 MG TABLET PO SCH ×2 (09:00→20:26)
[2019-09-19] MEDS: PANTOPRAZOLE SODIUM 40 MG DR TABLET PO SCH (09:53)
[2019-09-19] MEDS: ALLOPURINOL 100 MG TABLET PO SCH (09:53)
[2019-09-19] MEDS: FERROUS GLUCONATE 324 MG TABLET PO SCH (09:53)
[2019-09-19] MEDS: APIXABAN 2.5 MG TABLET PO SCH ×2 (09:53→20:27)
[2019-09-19] MEDS: SODIUM CHLORIDE 0.9% 1,000 ML IV SCH (11:16)
[2019-09-19 11:48] VITALS: BP 114/66
[2019-09-19] MEDS: CefTRIAXone 1 GM/DEXTROSE 50 ML IV SCH (14:06)
[2019-09-19 17:01] VITALS: BP 134/78
[2019-09-19 20:18] VITALS: BP 153/87
[2019-09-19 23:50] VITALS: BP 117/82
[2019-09-20 04:10] VITALS: BP 135/76
[2019-09-20 08:19] LABS: BASOPHILS % (AUTO) 0.4 % (0.0-2.0); HEMATOCRIT 24.9 % (36-46); HEMOGLOBIN 8.3 g/dL (12.0-16.0); LYMPHOCYTES # (AUTO) 0.9 K/uL (1.0-4.8); LYMPHOCYTES % (AUTO) 7.2 % (22.0-44.0); MEAN CORPUSCULAR HEMOGLOBIN 31.2 pg (26.0-34.0); MEAN CORPUSCULAR HGB CONC 33.3 G/dL (31.0-37.0); MEAN CORPUSCULAR VOLUME 94 fL (80-100); MONOCYTES # (AUTO) 0.6 K/uL (0.1-1.0); MONOCYTES % (AUTO) 4.9 % (2.0-9.0); NEUTROPHILS # (AUTO) 10.6 K/uL (1.8-7.7); PLATELET COUNT (AUTO) 263 K/uL (150-450); RED BLOOD CELL COUNT(AUTO) 2.65 MIL/uL (4.00-5.20); RED CELL DISTRIBUTION WIDTH 15.6 % (11.5-14.5)
[2019-09-20 08:34] LABS: CREATININE 2.63 mg/dL (0.60-1.30); MAGNESIUM 2.3 mg/dL (1.80-2.40); POTASSIUM 3.9 mmol/L (3.5-5.1)
[2019-09-20 08:40] LABS: NEUTROPHILS % (AUTO) 85.5 % (40.0-70.0)
[2019-09-20 08:57] VITALS: BP 137/73
[2019-09-20] MEDS: DOCUSATE SODIUM 100 MG CAPSULE PO SCH ×3 (09:00→20:24)
[2019-09-20] MEDS: COLCHICINE 0.6 MG TABLET PO SCH ×3 (09:00→20:23)
[2019-09-20] MEDS: ALLOPURINOL 100 MG TABLET PO SCH (09:57)
[2019-09-20] MEDS: HydrALAZINE HCL 50 MG TABLET PO SCH ×3 (09:58→20:25)
[2019-09-20] MEDS: FERROUS GLUCONATE 324 MG TABLET PO SCH (09:59)
[2019-09-20] MEDS: PANTOPRAZOLE SODIUM 40 MG DR TABLET PO SCH (09:59)
[2019-09-20] MEDS: CARVEDILOL 3.125 MG TABLET PO SCH ×2 (09:59→20:19)
[2019-09-20] MEDS: APIXABAN 2.5 MG TABLET PO SCH ×2 (10:00→20:19)
[2019-09-20] MEDS: LEVOFLOXACIN 250 MG TABLET PO SCH (10:01)
[2019-09-20 11:55] VITALS: BP 124/74
[2019-09-20] MEDS: CefTRIAXone 1 GM/DEXTROSE 50 ML IV SCH (14:45)
[2019-09-20 17:19] VITALS: BP 127/68
[2019-09-20] MEDS: SODIUM CHLORIDE 0.9% 1,000 ML IV SCH (19:35)
[2019-09-20 20:37] VITALS: BP 143/75
[2019-09-21] VITALS: BP 126/58
[2019-09-21 04:00] VITALS: BP 144/86
[2019-09-21 07:12] LABS: BASOPHILS % (AUTO) 0.5 % (0.0-2.0); EOSINOPHILS % (AUTO) 4.1 % (1.0-6.0); HEMATOCRIT 25.6 % (36-46); HEMOGLOBIN 8.7 g/dL (12.0-16.0); LYMPHOCYTES # (AUTO) 0.9 K/uL (1.0-4.8); LYMPHOCYTES % (AUTO) 10.6 % (22.0-44.0); MEAN CORPUSCULAR HGB CONC 33.9 G/dL (31.0-37.0); MEAN CORPUSCULAR VOLUME 94 fL (80-100); MONOCYTES % (AUTO) 11.1 % (2.0-9.0); NEUTROPHILS # (AUTO) 6.4 K/uL (1.8-7.7); NEUTROPHILS % (AUTO) 73.7 % (40.0-70.0); PLATELET COUNT (AUTO) 289 K/uL (150-450); RED BLOOD CELL COUNT(AUTO) 2.72 MIL/uL (4.00-5.20); RED CELL DISTRIBUTION WIDTH 15.8 % (11.5-14.5)
[2019-09-21 07:16] LABS: CALCIUM, TOTAL 9.1 mg/dL (8.8-10.5); CREATININE 2.59 mg/dL (0.60-1.30); MAGNESIUM 2.2 mg/dL (1.80-2.40); POTASSIUM 3.9 mmol/L (3.5-5.1)
[2019-09-21 08:07] VITALS: BP 137/85
[2019-09-21] MEDS: CARVEDILOL 3.125 MG TABLET PO SCH ×2 (08:22→21:00)
[2019-09-21] MEDS: COLCHICINE 0.6 MG TABLET PO SCH ×2 (08:22→21:00)
[2019-09-21] MEDS: DOCUSATE SODIUM 100 MG CAPSULE PO SCH ×2 (08:22→21:00)
[2019-09-21] MEDS: ALLOPURINOL 100 MG TABLET PO SCH (08:22)
[2019-09-21] MEDS: PANTOPRAZOLE SODIUM 40 MG DR TABLET PO SCH (08:22)
[2019-09-21] MEDS: HydrALAZINE HCL 50 MG TABLET PO SCH ×3 (08:22→20:39)
[2019-09-21] MEDS: FERROUS GLUCONATE 324 MG TABLET PO SCH (08:23)
[2019-09-21] MEDS: APIXABAN 2.5 MG TABLET PO SCH ×2 (08:23→20:39)
[2019-09-21] MEDS: SODIUM CHLORIDE 0.9% 1,000 ML IV SCH ×3 (08:31→22:51)
[2019-09-21 11:34] VITALS: BP 120/63
[2019-09-21 16:42] VITALS: BP 146/86
[2019-09-21 20:15] VITALS: BP 126/78
[2019-09-22 00:21] VITALS: BP 117/70
[2019-09-22] MEDS: ACETAMINOPHEN 325 MG TABLET PO PRN (01:49)
[2019-09-22 04:55] VITALS: BP 132/74
[2019-09-22 07:37] LABS: CALCIUM, TOTAL 9.1 mg/dL (8.8-10.5); CREATININE 2.36 mg/dL (0.60-1.30); POTASSIUM 3.9 mmol/L (3.5-5.1)
[2019-09-22 08:00] VITALS: BP 152/79
[2019-09-22] MEDS: COLCHICINE 0.6 MG TABLET PO SCH ×3 (09:00→21:27)
[2019-09-22] MEDS: DOCUSATE SODIUM 100 MG CAPSULE PO SCH ×2 (09:00→21:26)
[2019-09-22] MEDS: ALLOPURINOL 100 MG TABLET PO SCH (09:22)
[2019-09-22] MEDS: CARVEDILOL 3.125 MG TABLET PO SCH ×2 (09:22→21:26)
[2019-09-22] MEDS: APIXABAN 2.5 MG TABLET PO SCH ×2 (09:22→21:26)
[2019-09-22] MEDS: HydrALAZINE HCL 50 MG TABLET PO SCH ×3 (09:22→23:05)
[2019-09-22] MEDS: LEVOFLOXACIN 250 MG TABLET PO SCH (09:22)
[2019-09-22] MEDS: PANTOPRAZOLE SODIUM 40 MG DR TABLET PO SCH (09:22)
[2019-09-22] MEDS: FERROUS GLUCONATE 324 MG TABLET PO SCH (10:05)
[2019-09-22] MEDS ORDERED: LEVO250 PO (11:19)
[2019-09-22 11:45] VITALS: BP 126/75
[2019-09-22 15:35] VITALS: BP 129/74
[2019-09-22 21:49] VITALS: BP 151/84
[2019-09-23 07:45] VITALS: BP 115/50
[2019-09-23] MEDS: HydrALAZINE HCL 50 MG TABLET PO SCH ×3 (08:33→21:29)
[2019-09-23] MEDS: PANTOPRAZOLE SODIUM 40 MG DR TABLET PO SCH (08:33)
[2019-09-23] MEDS: ALLOPURINOL 100 MG TABLET PO SCH (08:33)
[2019-09-23] MEDS: FERROUS GLUCONATE 324 MG TABLET PO SCH (08:34)
[2019-09-23] MEDS: CARVEDILOL 3.125 MG TABLET PO SCH ×2 (08:34→21:30)
[2019-09-23] MEDS: DOCUSATE SODIUM 100 MG CAPSULE PO SCH ×2 (08:34→21:29)
[2019-09-23] MEDS: APIXABAN 2.5 MG TABLET PO SCH ×2 (08:34→21:29)
[2019-09-23] MEDS: COLCHICINE 0.6 MG TABLET PO SCH ×2 (08:35→20:01)
[2019-09-23 12:04] VITALS: BP 105/51
[2019-09-23 13:30] LABS: CALCIUM, TOTAL 9.2 mg/dL (8.8-10.5); CREATININE 2.15 mg/dL (0.60-1.30); POTASSIUM 3.8 mmol/L (3.5-5.1)
[2019-09-23] MEDS: PredniSONE 10 MG TABLET PO SCH ×2 (13:47→21:28)
[2019-09-23] MEDS: SODIUM CHLORIDE 0.9% 1,000 ML IV SCH (14:15)
[2019-09-23 15:05] VITALS: BP 107/66
[2019-09-23 19:44] VITALS: BP 112/68
[2019-09-23 23:54] VITALS: BP 121/66
[2019-09-24] MEDS: SODIUM CHLORIDE 0.9% 1,000 ML IV SCH (06:55)
[2019-09-24 08:18] VITALS: BP 113/56
[2019-09-24] MEDS: FERROUS GLUCONATE 324 MG TABLET PO SCH (08:18)
[2019-09-24] MEDS: PredniSONE 10 MG TABLET PO SCH ×2 (08:18→20:25)
[2019-09-24] MEDS: APIXABAN 2.5 MG TABLET PO SCH ×2 (08:18→20:25)
[2019-09-24] MEDS: PANTOPRAZOLE SODIUM 40 MG DR TABLET PO SCH (08:18)
[2019-09-24] MEDS: ALLOPURINOL 100 MG TABLET PO SCH (08:18)
[2019-09-24] MEDS: LEVOFLOXACIN 250 MG TABLET PO SCH (08:18)
[2019-09-24] MEDS: CARVEDILOL 3.125 MG TABLET PO SCH ×2 (08:19→20:25)
[2019-09-24] MEDS: DOCUSATE SODIUM 100 MG CAPSULE PO SCH ×2 (08:19→20:25)
[2019-09-24] MEDS: HydrALAZINE HCL 50 MG TABLET PO SCH ×3 (08:19→20:25)
[2019-09-24] MEDS: COLCHICINE 0.6 MG TABLET PO SCH ×2 (08:27→20:33)
[2019-09-24 11:41] VITALS: BP 124/73
[2019-09-24 16:09] VITALS: BP 157/81
[2019-09-24 19:24] VITALS: BP 138/71
[2019-09-24 23:56] VITALS: BP 138/72
[2019-09-25 04:10] VITALS: BP 128/71
[2019-09-25 07:59] VITALS: BP 103/54
[2019-09-25] MEDS: CARVEDILOL 3.125 MG TABLET PO SCH (09:00)
[2019-09-25] MEDS: HydrALAZINE HCL 50 MG TABLET PO SCH (09:00)
[2019-09-25] MEDS: APIXABAN 2.5 MG TABLET PO SCH (09:14)
[2019-09-25] MEDS: ALLOPURINOL 100 MG TABLET PO SCH (09:14)
[2019-09-25] MEDS: COLCHICINE 0.6 MG TABLET PO SCH (09:14)
[2019-09-25] MEDS: PANTOPRAZOLE SODIUM 40 MG DR TABLET PO SCH (09:14)
[2019-09-25] MEDS: FERROUS GLUCONATE 324 MG TABLET PO SCH (09:14)
[2019-09-25] MEDS: PredniSONE 10 MG TABLET PO SCH (09:14)
[2019-09-25] MEDS: DOCUSATE SODIUM 100 MG CAPSULE PO SCH (09:14)
[2019-09-25] MEDS ORDERED: HYDR-4173 PO (10:18)
[2019-09-25] MEDS ORDERED: PRED20TA3 PO ×2 (10:22)
[2019-09-25 11:50] VITALS: BP 122/70
== END 2019-09-25 13:30 | disposition home or self-care (01) | DRG 871 ==
LOC: EMS 10:10 → 6N 18:19 → EMS 18:51 → 4E 09-22 19:43
PROVIDERS: ADMIT Internal Medicine; ATTEND Internal Medicine Geriatric Medicine
DX: A41.59 Other Gram-negative sepsis (principal); N17.0 Acute kidney failure with tubular necrosis; N10 Acute pyelonephritis; N17.9 Acute kidney failure, unspecified; I82.4Z2 Acute embolism and thrombosis of unspecified deep veins of left distal lower extremity; N18.9 Chronic kidney disease, unspecified; I12.9 Hypertensive chronic kidney disease with stage 1 through stage 4 chronic kidney disease, or unspecified chronic kidney disease; K21.9 Gastro-esophageal reflux disease without esophagitis; M06.9 Rheumatoid arthritis, unspecified; M10.9 Gout, unspecified; M19.90 Unspecified osteoarthritis, unspecified site; D64.9 Anemia, unspecified; N27.0 Small kidney, unilateral; B96.1 Klebsiella pneumoniae [K. pneumoniae] as the cause of diseases classified elsewhere; Z79.01 Long term (current) use of anticoagulants; Z79.899 Other long term (current) drug therapy
CPT/HCPCS: 51702; 70450; 74176; 76770; 83605; 83735; 87040; 87086; 87205; 87804; 93005; 93970; 97162; 97165; 97535; 99291; G0378; G0480; G0481; J0131; J0696; J1650; J3475; J3480; J7030

== ENCOUNTER → 2019-11-11 | Outpatient (CLI) | payer OTHER ==
[~2019-11-11] MED LIST changes: -HYDR-2924 PO; +HYDR-4173 PO; +PRED20TA3 PO
== END | disposition home or self-care (01) ==
LOC: RADPV 07:57
PROVIDERS: ATTEND Legal Medicine
DX: S32.019A Unspecified fracture of first lumbar vertebra, initial encounter for closed fracture (principal); M85.80 Other specified disorders of bone density and structure, unspecified site; M47.816 Spondylosis without myelopathy or radiculopathy, lumbar region; I70.0 Atherosclerosis of aorta; I10 Essential (primary) hypertension; W19.XXXA Unspecified fall, initial encounter; Y93.89 Activity, other specified; Y92.89 Other specified places as the place of occurrence of the external cause; Y99.8 Other external cause status
CPT/HCPCS: 72100; 72170

== ENCOUNTER 2020-02-04 18:46 | Emergency (ER) | payer OTHER, MEDICARE ==
[~2020-02-04] VITALS: Ht 154.9 cm; Wt 59.1 kg
[2020-02-04] MEDS ORDERED: SODIUM BICARBONATE [ADULT] 8.4% 50 MEQ/50 ML SYRINGE IVP ONE ×2 (18:50)
[2020-02-04] MEDS ORDERED: DOPamine HCL/D5W 400 MG/250 ML IV BAG IV ONE (18:50)
[2020-02-04] MEDS ORDERED: 0.9% SODIUM CHLORIDE 1,000 ML BAG IV ONE (18:50)
[2020-02-04] MEDS ORDERED: EPINEPHrine 1:10,000 [1 MG/10 ML] SYRINGE IVP ONE ×2 (18:50)
[2020-02-04] MEDS ORDERED: 0.9% SODIUM CHLORIDE 250 ML BAG IV ONE (18:50)
[2020-02-04] MEDS ORDERED: 0.9% SODIUM CHLORIDE 10 ML SYRINGE IVP ONE ×2 (18:50)
[2020-02-04 19:02] LABS: ABG A-A DIFF O2 544.6 mmHg (10-20.0); ABG BASE EXCESS -12.4 mmol/L (-2.0-3.0); ABG CARBOXYHEMOGLOBIN 0.3 % (0.0-1.5); ABG HCO3 14.5 mmol/L (22.0-26.0); ABG METHEMOGLOBIN 0.5 % (0.0-1.5); ABG OXYGEN CONTENT 13.9 mL/dL (15.0-23.0); ABG OXYGEN SATURATION 94.7 % (95.0-98.0); ABG OXYHEMOGLOBIN 93.9 % (94.0-100.0); ABG TOTAL HEMOGLOBIN 10.4 G/dL (12.0-18.0); PO2, ARTERIAL BG 101.1 mmHg (75.0-83.0); SOURCE, BLOOD GAS ARTERIAL; TEMPERATURE, FAHRENHEIT, BG 98.6 FAHREN (96.0-98.6)
[2020-02-04 19:03] LABS: HEMATOCRIT 29.2 % (36-46); HEMOGLOBIN 9.2 g/dL (12.0-16.0); MEAN CORPUSCULAR HEMOGLOBIN 32.1 pg (26.0-34.0); MEAN CORPUSCULAR HGB CONC 31.5 G/dL (31.0-37.0); MEAN CORPUSCULAR VOLUME 102 fL (80-100); PLATELET COUNT (AUTO) 191 K/uL (150-450); RED BLOOD CELL COUNT(AUTO) 2.86 MIL/uL (4.00-5.20); RED CELL DISTRIBUTION WIDTH 14.4 % (11.5-14.5)
[2020-02-04 19:08] LABS: ABG PCO2 67 mmHg (35-45); ABG PH 7.047 (7.35-7.450); O2 DEVICE,BLOOD GAS VENTILATOR (ROOM AIR); PEEP,BG 5 cm H2O; SITE, BLOOD GAS RT RADIAL; VT, ABG 400 ml
[2020-02-04 19:24] LABS: INR 1.1 (0.9-1.1); PROTHROMBIN TIME 11.3 SEC (9.4-11.6)
[2020-02-04] MEDS ORDERED: VASOPRESSIN 40 UNITS in DEXTROSE 5%-WATER 98 ML IV PRN (19:30)
[2020-02-04] MEDS ORDERED: PHENYLEPHRINE 200 MG/D5%-WATER 250 ML IV PRN ×2 (19:30→23:00)
[2020-02-04] MEDS ORDERED: CefTRIAXone 1 GM/DEXTROSE 50 ML IV ONE ×2 (19:45→22:30)
[2020-02-04] MEDS ORDERED: AZITHROMYCIN 500 MG/NS 250 ML IV ONE (19:45)
[2020-02-04 19:54] LABS: ANION GAP 14 mmol/L (8-16); CALCIUM, TOTAL 7.6 mg/dL (8.8-10.5); CARBON DIOXIDE 27 mmol/L (22-29); CHLORIDE 109 mmol/L (98-107); CREATININE 2.13 mg/dL (0.60-1.30); GLOMERULAR FILTR. RATE CALC 23 mL/min (>60); GLUCOSE,RANDOM 339 mg/dL (70-110); POTASSIUM 4.3 mmol/L (3.5-5.1); SODIUM SERUM 150 mmol/L (136-145); UREA NITROGEN, BLOOD 27 mg/dL (7-18)
[2020-02-04 19:56] LABS: APPEARANCE,URINE CLOUDY (CLEAR); BILIRUBIN,URINE NEGATIVE (NEGATIVE); GLUCOSE, URINE (UA) 250 mg/dL (NEGATIVE); KETONES,URINE NEGATIVE (NEGATIVE); LEUKOCYTE ESTERASE ,URINE NEGATIVE (NEGATIVE); NITRATE,URINE NEGATIVE (NEGATIVE); OCCULT BLOOD,URINE LARGE (NEGATIVE); PROTEIN,URINE SEE CONFIRM (NEGATIVE); UROBILINOGEN,URINE 0.2 mg/dL (<=1.0)
[2020-02-04] MEDS ORDERED: INSULIN REGULAR, HUMAN 100 UNITS/ML IVP ONE (20:15)
[2020-02-04 20:17] LABS: ALANINE AMINOTRANSFERASE 594 U/L (12-78); ALBUMIN 2.3 g/dL (3.4-5.0); ALKALINE PHOSPHATASE 95 U/L (46-116); ASPARTATE AMINOTRANSFERASE 587 U/L (15-37); BILIRUBIN,TOTAL 0.2 mg/dL (0.1-1.0); CREATINE KINASE, TOTAL ONLY 203 U/L (26-192); LIPASE 303 U/L (73-393); TOTAL PROTEIN, SERUM 4.7 g/dL (6.4-8.2)
[2020-02-04 20:29] LABS: B-TYPE NATRIURETIC PEPTIDE < 4 pg/mL (0-100)
[2020-02-04 20:36] LABS: LACTIC ACID 12.1 mmol/L (0.4-2.0)
[2020-02-04 20:47] LABS: SULFOSALICYLIC ACID,URINE 4+ (Negative)
[2020-02-04 20:48] LABS: RBC,URINE >100 /HPF (0-2)
[2020-02-04 20:49] LABS: WBC,URINE 0-2 /HPF (0-5)
[2020-02-04 20:50] LABS: BACTERIA,URINE Moderate /HPF (None Seen); SQUAMOUS EPITHELIAL CELL,UR Few /LPF (None Seen)
[2020-02-04] MEDS ORDERED: PHENYLEPHRINE HCL IN 0.9% NACL 400 MCG/10 ML SYRINGE IVP ONE (21:12)
[2020-02-04] MEDS ORDERED: 0.9% SODIUM CHLORIDE 10 ML SYRINGE IVP PRN (21:15)
[2020-02-04] MEDS ORDERED: ACETAMINOPHEN 325 MG TABLET PO PRN (21:15)
[2020-02-04 21:30] LABS: BAND NEUTROPHILS % (MANUAL) 4 % (0-5); EOSINOPHILS % (MANUAL) 2 % (1-6); LYMPHOCYTES % (MANUAL) 74 % (22-44); MONOCYTES % (MANUAL) 4 % (2-9); SEGMENTED NEUTROPHILS % 16 % (40-70)
[2020-02-04 22:23] LABS: C-REACTIVE PROTEIN QUANT 0.07 mg/dL (0.00-0.30)
[2020-02-04] MEDS ORDERED: NOREPINEPHRINE 4 MG/D5%-WATER 250 ML IV ONE (22:44)
[2020-02-04] MEDS ORDERED: NOREPINEPHRINE 4 MG/D5%-WATER 250 ML IV PRN (22:53)
[2020-02-05] MEDS ORDERED: SODIUM CHLORIDE 3% 250 ML IV ONE
[2020-02-05] MEDS ORDERED: LevETIRAcetam 1,000 MG in DEXTROSE 5%-WATER 100 ML IV ONE ×2
[2020-02-05 00:32] VITALS: BP 120/94
[2020-02-05 00:52] LABS: GLUCOSE,POINT OF CARE 298 MG/DL (70-110)
[2020-02-05] MEDS ORDERED: MANNITOL 25%-12.5 GM/50 ML VIAL IVP ONE (01:30)
[2020-02-05] MEDS ORDERED: HEPARIN SODIUM,PORCINE 5,000 UNITS/ML VIAL SQ SCH (09:00)
[2020-02-05] MEDS ORDERED: AZITHROMYCIN 500 MG/NS 250 ML IV SCH (20:00)
== END 2020-02-05 02:45 | disposition short-term general hospital (02) ==
LOC: EMS 18:49
DX: S22.43XA Multiple fractures of ribs, bilateral, initial encounter for closed fracture (principal); S22.20XA Unspecified fracture of sternum, initial encounter for closed fracture; J18.9 Pneumonia, unspecified organism; I60.9 Nontraumatic subarachnoid hemorrhage, unspecified; D64.9 Anemia, unspecified; E11.65 Type 2 diabetes mellitus with hyperglycemia; J96.00 Acute respiratory failure, unspecified whether with hypoxia or hypercapnia; E87.2 Acidosis; N28.9 Disorder of kidney and ureter, unspecified; E87.0 Hyperosmolality and hypernatremia; I67.1 Cerebral aneurysm, nonruptured; R74.8 Abnormal levels of other serum enzymes; I10 Essential (primary) hypertension; Z88.6 Allergy status to analgesic agent; X58.XXXA Exposure to other specified factors, initial encounter; Y93.89 Activity, other specified; Y92.89 Other specified places as the place of occurrence of the external cause; Y99.8 Other external cause status
CPT/HCPCS: 31500; 36415; 36556; 70450; 71045; 71250; 72125; 74176; 80053; 81001; 82550; 82728; 82805; 82962; 83605; 83690; 83735; 83880; 84100; 84145; 84484; 85025; 85610; 85730; 86140; 86850; 86900; 86901; 87040; 87086; 92950; 93005; 96365; 96368; 96375 ×2; 99291; J0171; J0456; J0696; J0712; J1265; J1815; J2150; J2370; J3490; J7030 ×2; J7050; J7060; U0003; X7700; 72192; 74150; 94002